=== PATIENT | male | born 1935 | race Caucasian/White ===

== ENCOUNTER → 2021-11-27 | Outpatient (CLI) | payer MEDICARE ==
--- NOTE | 2021-11-27 13:46 | US ---
EXAMINATION TYPE: US arterial LE single level DATE OF EXAM: 11/27/2021 9:28 AM CLINICAL HISTORY: I73.9 PERIPHERAL VASCULAR DISEASE. Patient states reason for exam in swelling and arthritis and he has drop foot. Doppler Waveforms: Right: Multiphasic Left: Multiphasic Pressure Gradients: No significant gradient Ankle-Brachial Indices: Right: 1.06 Left: 1.01 Toe Brachial Indices: Right: 0.56 Left: 0.66 IMPRESSION: Normal ankle-brachial indices
== END | disposition home or self-care (01) ==
LOC: RADUSWWP 08:50
PROVIDERS: ATTEND Podiatrist Foot & Ankle Surgery
DX: I73.9 Peripheral vascular disease, unspecified (principal)
CPT/HCPCS: 93922

== ENCOUNTER 2024-01-28 10:53 | Inpatient (IN) | payer MEDICARE ==
--- NOTE | 2024-01-28 11:32 | ED ---
General Adult HPI - General Chief complaint: Neuro Symptoms/Deficit Stated complaint: R arm/facial numbness,R eye issue Time Seen by Provider: 01/28/24 11:16 Source: patient, RN notes reviewed Mode of arrival: ambulatory Limitations: no limitations - History of Present Illness Initial comments: This is an 88-year-old male who presents to the emergency department for neurological symptoms. States that last night around 9 PM he was sitting down watching TV. He noticed his right arm become numb all of the way down to his fingertips. Shortly afterwards the right side of his face began to feel numb and he was unable to see out of his right eye. States that this lasted for about 2 hours, until around 11 PM, and then resolved on its own. He did not have any weakness with the numbness, states that he did have some pain. States that he currently feels fine and has no additional symptoms. Denies any history of CVA/TIA. Not taking any blood thinners. Denies any chest pain or shortness of breath. - Related Data Home Medications Medication Instructions Recorded Confirmed Atorvastatin [Lipitor] 10 mg PO DAILY 01/28/24 01/28/24 Glimepiride [Amaryl] 2 mg PO HS 01/28/24 01/28/24 Meclizine [Antivert] 25 mg PO TID PRN 01/28/24 01/28/24 Metoprolol Succinate (ER) [Toprol 50 mg PO DAILY 01/28/24 01/28/24 Xl] Valsartan 320 mg PO DAILY 01/28/24 01/28/24 sitaGLIPtin [Januvia] 100 mg PO DAILY 01/28/24 01/28/24 Allergies Allergy/AdvReac Type Severity Reaction Status Date / Time metformin Allergy Rash/Hives Verified 01/28/24 13:41 Penicillins Allergy Rash/Hives Verified 01/28/24 13:41 Review of Systems ROS Statement: Those systems with pertinent positive or pertinent negative responses have been documented in the HPI. ROS Other: All systems not noted in ROS Statement are negative. Past Medical History Past Medical History: Diabetes Mellitus, Hyperlipidemia, Hypertension History of Any Multi-Drug Resistant Organisms: None Reported Past Surgical History: No Surgical Hx Reported Past Psychological History: No Psychological Hx Reported Smoking Status: Never smoker Past Alcohol Use History: None Reported Past Drug Use History: None Reported General Exam Limitations: no limitations General appearance: alert, in no apparent distress Head exam: Present: atraumatic, normocephalic, normal inspection Eye exam: Present: normal appearance, PERRL, EOMI. Absent: scleral icterus, con junctival injection, periorbital swelling Respiratory exam: Present: normal lung sounds bilaterally. Absent: respiratory distress, wheezes, rales, rhonchi, stridor Cardiovascular Exam: Present: regular rate, normal rhythm, normal heart sounds. Absent: systolic murmur, diastolic murmur, rubs, gallop, clicks Neurological exam: Present: alert, oriented X3, CN II-XII intact Expanded Cerebellar function: Finger to Nose: Normal, Heel to Freed: Normal, Romberg: Normal Motor strength exam: RUE: 5, LUE: 5, RLE: 5, LLE: 5 Psychiatric exam: Present: normal affect, normal mood Skin exam: Present: warm, dry, intact, normal color. Absent: rash Course Vital Signs 01/28/24 01/28/24 01/28/24 11:01 13:00 13:07 Temperature 98.1 F Pulse Rate 63 55 L 56 L Respiratory 20 16 18 Rate Blood Pressure 150/90 144/94 132/86 O2 Sat by Pulse 99 95 94 L Oximetry 01/28/24 01/28/24 01/28/24 14:00 15:00 16:00 Temperature Pulse Rate 60 60 62 Respiratory 18 16 19 Rate Blood Pressure 132/86 151/96 O2 Sat by Pulse 95 95 95 Oximetry Medical Decision Making - Medical Decision Making This is an 88 year old male who presents to the emergency department for right sided paresthesias. Was pt. sent in by a medical professional or institution? @ -No Did you speak to anyone other than the patient for history? @ -No Did you review nursing and triage notes? @ -Yes, and I agree, it is accurate with regards to the patient's symptoms. Were old charts reviewed? @ -No Differential Diagnosis? @ -Differential CVA Ischemic stroke, hemorrhagic stroke, brain tumor, atypical migraine, Wernicke's encephalopathy, seizure, multiple sclerosis, meningitis, encephalitis, hypoglycemia, Guillain-Rodrigues, electrolytes disturbance, myasthenia gravis.... This is not meant to be an all-inclusive list EKG interpreted by me (3pts min.)? @ -EKG interpreted by me demonstrating the following: Sinus bradycardia. Ventricular rate 58 bpm, WV interval 238 ms, QRS duration 113 ms, QTc 425 ms. X-rays interpreted by me (1pt min.)? @ -Chest x-ray obtained, my interpretation identifies no localized consolidations or infiltrates. CT interpreted by me (1pt min.)? @ -CT scan of the brain obtained. My interpretation identifies no evidence of an acute intracranial hemorrhage. CTA of the head and neck obtained. My interpretation identifies no evidence of an aneurysm. U/S interpreted by me (1pt. min.)? @ -Not obtained What testing was considered but not performed? (CT, X-rays, U/S, labs)? Why? @ -None What meds were considered but not given? Why? @ -None Did you discuss the management of the patient with other professionals? @ -Yes, Dr. Wiseman, who accepts the patient for admission Did you reconcile home meds? @ -Yes Was smoking cessation discussed for >3mins.? @ -No Was critical care preformed (if so, how long)? @ -No Were there social determinants of health that impacted care today? How? (Ho melessness, low income, unemployed, alcoholism, drug addiction, transportation, low edu. Level, literacy, decrease access to med. care, long-term, rehab)? @ -No Was there de-escalation of care discussed even if they declined? (Discuss DNR or withdrawal of care, Hospice)? @ -No What co-morbidities impacted this encounter? (DM, HTN, Smoking, COPD, CAD, Cancer, CVA, Hep., AIDS, mental health diagnosis, sleep apnea, morbid obesity)? @ -DM, HLD, HTN Was patient admitted / discharged? @ -Admitted. Lab work demonstrates signs of dehydration and is otherwise unremarkable. Urinalysis has some elevated white blood cells but no bacteria. Urine sent for culture. Chest x-ray reveals no acute process. CT scan of the brain and CTA of the head and neck also revealed no acute intracranial process. NIH on arrival was 0. Patient likely experienced a TIA. Given his age and risk factors, patient will be admitted to medicine with neurology consult. Case discussed with ED attending Dr. Carpenter. Undiagnosed new problem with uncertain prognosis? @ -None Drug Therapy requiring intensive monitoring for toxicity (Heparin, Nitro, Insulin, Cardizem)? @ -None Were any procedures done? @ -None Diagnosis/symptom? @ -TIA Acute, or Chronic, or Acute on Chronic? @ -Acute Uncomplicated (without systemic symptoms) or Complicated (systemic symptoms)? @ -Uncomplicated Side effects of treatment? @ -None Exacerbation, Progression, or Severe Exacerbation] @ -Not applicable Poses a threat to life or bodily function? @ -Yes, can lead to CVA - Lab Data Result diagrams: 01/28/24 11:41 01/28/24 11:41 Lab Results 01/28/24 01/28/24 01/28/24 Range/Units 11:41 11:41 11:41 WBC 7.2 (3.8-10.6) k/uL RBC 4.55 (4.30-5.90) m/uL Hgb 14.0 (13.0-17.5) gm/dL Hct 42.6 (39.0-53.0) % MCV 93.5 (80.0-100.0) fL MCH 30.7 (25.0-35.0) pg MCHC 32.8 (31.0-37.0) g/dL RDW 14.5 (11.5-15.5) % Plt Count 206 (150-450) k/uL MPV 8.0 Neutrophils % 67 % Lymphocytes % 22 % Monocytes % 6 % Eosinophils % 4 % Basophils % 0 % Neutrophils # 4.8 (1.3-7.7) k/uL Lymphocytes # 1.6 (1.0-4.8) k/uL Monocytes # 0.4 (0-1.0) k/uL Eosinophils # 0.3 (0-0.7) k/uL Basophils # 0.0 (0-0.2) k/uL PT 10.4 (10.0-12.5) sec INR 0.9 (<1.2) APTT 23.1 (22.0-30.0) sec Sodium 137 (137-145) mmol/L Potassium 4.4 (3.5-5.1) mmol/L Chloride 106 (98-107) mmol/L Carbon Dioxide 25 (22-30) mmol/L Anion Gap 6 mmol/L BUN 23 H (9-20) mg/dL Creatinine 1.31 H (0.66-1.25) mg/dL Est GFR (CKD-EPI)AfAm 56 (>60 ml/min/1.73 sqM) Est GFR (CKD-EPI)NonAf 48 (>60 ml/min/1.73 sqM) Glucose 198 H (74-99) mg/dL Calcium 9.7 (8.4-10.2) mg/dL Magnesium 1.9 (1.6-2.3) mg/dL Total Bilirubin 0.5 (0.2-1.3) mg/dL AST 20 (17-59) U/L ALT 19 (4-49) U/L Alkaline Phosphatase 88 (38-126) U/L Troponin I (0.000-0.034) ng/mL Total Protein 7.0 (6.3-8.2) g/dL Albumin 4.0 (3.5-5.0) g/dL 01/28/24 Range/Units 11:41 WBC (3.8-10.6) k/uL RBC (4.30-5.90) m/uL Hgb (13.0-17.5) gm/dL Hct (39.0-53.0) % MCV (80.0-100.0) fL MCH (25.0-35.0) pg MCHC (31.0-37.0) g/dL RDW (11.5-15.5) % Plt Count (150-450) k/uL MPV Neutrophils % % Lymphocytes % % Monocytes % % Eosinophils % % Basophils % % Neutrophils # (1.3-7.7) k/uL Lymphocytes # (1.0-4.8) k/uL Monocytes # (0-1.0) k/uL Eosinophils # (0-0.7) k/uL Basophils # (0-0.2) k/uL PT (10.0-12.5) sec INR (<1.2) APTT (22.0-30.0) sec Sodium (137-145) mmol/L Potassium (3.5-5.1) mmol/L Chloride (98-107) mmol/L Carbon Dioxide (22-30) mmol/L Anion Gap mmol/L BUN (9-20) mg/dL Creatinine (0.66-1.25) mg/dL Est GFR (CKD-EPI)AfAm (>60 ml/min/1.73 sqM) Est GFR (CKD-EPI)NonAf (>60 ml/min/1.73 sqM) Glucose (74-99) mg/dL Calcium (8.4-10.2) mg/dL Magnesium (1.6-2.3) mg/dL Total Bilirubin (0.2-1.3) mg/dL AST (17-59) U/L ALT (4-49) U/L Alkaline Phosphatase (38-126) U/L Troponin I 0.018 (0.000-0.034) ng/mL Total Protein (6.3-8.2) g/dL Albumin (3.5-5.0) g/dL - Radiology Data Radiology results: report reviewed, image reviewed Disposition Clinical Impression: TIA (transient ischemic attack) Disposition: ADMITTED IP TO THIS HOSP
[2024-01-28 12:04] LABS: Basophils % (A) 0 %; Eosinophils # (A) 0.3 k/uL (0-0.7); Eosinophils % (A) 4 %; HCT 42.6 % (39.0-53.0); Lymphocytes # (A) 1.6 k/uL (1.0-4.8); Lymphocytes % (A) 22 %; MCH 30.7 pg (25.0-35.0); MCHC 32.8 g/dL (31.0-37.0); MCV 93.5 fL (80.0-100.0); Monocytes # (A) 0.4 k/uL (0-1.0); Monocytes % (A) 6 %; Neutrophils # (A) 4.8 k/uL (1.3-7.7); Neutrophils % (A) 67 %; Platelet Count 206 k/uL (150-450); RBC 4.55 m/uL (4.30-5.90); RDW 14.5 % (11.5-15.5); WBC 7.2 k/uL (3.8-10.6)
[2024-01-28 12:10] LABS: ALT 19 U/L (4-49); AST 20 U/L (17-59); African American GFR (CKD) 56 (>60 ml/min/1.73 sqM); Alkaline Phosphatase 88 U/L (38-126); Anion Gap 6 mmol/L; Blood Urea Nitrogen 23 mg/dL (9-20); Calcium 9.7 mg/dL (8.4-10.2); Carbon Dioxide 25 mmol/L (22-30); Chloride 106 mmol/L (98-107); Glucose 198 mg/dL (74-99); Magnesium 1.9 mg/dL (1.6-2.3); Non-African American GFR(CKD) 48 (>60 ml/min/1.73 sqM); Potassium 4.4 mmol/L (3.5-5.1); Sodium 137 mmol/L (137-145); Total Bilirubin 0.5 mg/dL (0.2-1.3)
[2024-01-28 12:21] LABS: INR 0.9 (<1.2); Partial Thromboplastin Time 23.1 sec (22.0-30.0); Prothrombin Time 10.4 sec (10.0-12.5)
--- NOTE | 2024-01-28 12:24 | XR ---
EXAMINATION TYPE: XR chest 2V DATE OF EXAM: 01/28/2024 12:19 PM COMPARISON: None TECHNIQUE: XR chest 2V Frontal and lateral views of the chest. CLINICAL INDICATION:Male, 88 years old with history of Weakness; FINDINGS: Lungs/Pleura: There is no evidence of pleural effusion, focal consolidation, or pneumothorax. Biapic al pleural thickening. Pulmonary vascularity: Unremarkable. Heart/mediastinum: Cardiomediastinal silhouette is enlarged. Atherosclerotic calcifications are seen in the aorta. Musculoskeletal: No acute osseous pathology. Bilateral AC joint arthropathy. IMPRESSION: No acute cardiopulmonary disease/process. [facility], , 01/28/2024 12:22 PM
--- NOTE | 2024-01-28 12:30 | CT ---
EXAMINATION TYPE: CT brain wo con CT DLP: 1746.2 mGycm, Automated exposure control for dose reduction was used. DATE OF EXAM: 01/28/2024 12:25 PM COMPARISON: None. CLINICAL INDICATION:Male, 88 years old with history of Right arm and facial numbness, Rt sided numbne ss TECHNIQUE: Brain: Multiple axial CT images of the brain were obtained without IV contrast. . Coronal and sagitta l reformats reviewed. FINDINGS: Brain: Extra-axial spaces: No abnormal extra-axial fluid collections. Ventricular system: Within normal limits Cerebral parenchyma: Diffuse cerebral atrophy. No acute intraparenchymal hemorrhage or mass effect. The vasquez-white junction is well differentiated. Scattered hypoattenuating areas are seen within the p eriventricular white matter. Cerebellum: Unremarkable. Mass effect: No evidence of midline shift. Intracranial vasculature: Atherosclerotic calcifications of the intracranial vessels. Soft tissues: Normal. Calvarium/osseous structures: No depressed skull fracture. Paranasal sinuses and mastoid air cells: Paranasal sinuses are clear. The left mastoid air cells are clear. Minimal opacification of the right mastoid air cells. Visualized orbits: Bilateral aphakia IMPRESSION: 1. No acute intracranial process. 2. Nonspecific white matter changes, likely secondary to chronic small vessel ischemic disease. [facility], , 01/28/2024 12:28 PM
--- NOTE | 2024-01-28 12:34 | CT ---
EXAMINATION TYPE: CT angio head neck CT DLP: 1746.2 mGycm, Automated exposure control for dose reduction was used. DATE OF EXAM: 01/28/2024 12:25 PM COMPARISON: CT brain the same date. CLINICAL INDICATION:Male, 88 years old with history of Right arm and facial numbness; PHH, Rt sided n umbness TECHNIQUE: Axially acquired helical CT angiogram of the head and neck was obtained with contrast util izing 75 cc of Isovue-370 administered intravenously. Axial images are supplemented with MIP reconstr uctions which were post-processed at an independent workstation. NASCET criteria used. FINDINGS: CTA HEAD: No evidence of acute intracranial hemorrhage, mass effect, or midline shift. The ventricles, sulci, a nd cisterns are unremarkable. The visualized portions of the internal carotid arteries, middle cerebral arteries, anterior cerebral arteries, and posterior cerebral arteries are patent. origin of the left [employer]. The basilar and vertebral arteries are patent. CTA NECK: Right Carotid System: The common carotid artery and external carotid artery are patent. The carotid bifurcation demonstrate s no evidence of hemodynamically significant stenosis. Minimal atherosclerotic calcification involvin g the proximal internal carotid artery. The remaining portions of the internal carotid artery demons trate normal size without significant narrowing. Left Carotid System: The common carotid artery and external carotid artery are patent. The carotid bifurcation demonstrate s no evidence of hemodynamically significant stenosis. The remaining portions of the internal carotid artery demonstrate normal size without significant narrowing. Vertebral arteries are patent without evidence hemodynamically significant stenosis. There is a three-vessel aortic arch. The origins of the great vessels are patent. No evidence of hemo dynamically significant stenosis. Mild amount of noncalcified plaque within the origin of the left diaz bclavian artery. Large right internal jugular vein. Biapical pleural-parenchymal scarring. Multilevel degenerative disc disease. IMPRESSION: 1. No evidence of dissection of the cervical internal carotid arteries or vertebral arteries or any e vidence of significant stenosis at the carotid bifurcations. 2. No evidence of high-grade stenosis or intracranial aneurysm. [facility], , 01/28/2024 12:32 PM
[2024-01-28] MEDS ORDERED: MORPHINE SULFATE 4 MG/ML SYRINGE IV PRN (12:43)
[2024-01-28] MEDS ORDERED: NALOXONE 0.4 MG/ML 1 ML VIAL IV PRN (12:43)
[2024-01-28] MEDS ORDERED: HYDROcodone/APAP 5-325MG 1 EACH TAB PO PRN (12:43)
[2024-01-28] MEDS ORDERED: ONDANSETRON 4 MG/2 ML VIAL IVP PRN (12:43)
[2024-01-28 12:54] LABS: Appearance,Urine Clear (Clear); Bilirubin,Urine Negative (Negative); Blood,Urine Trace (Negative); Color,Urine Colorless; Glucose,Urine (UA) Negative (Negative); Ketones,Urine Negative (Negative); Leukocyte Esterase,Urine Moderate (Negative); Mucus,Urine Rare /hpf; Nitrite,Urine Negative (Negative); PH, Urine 5.5 (5.0-8.0); Protein,Urine Negative (Negative); RBC,Urine 2 /hpf (0-5); Urobilinogen,Urine <2.0 mg/dL (<2.0); WBC,Urine 20 /hpf (0-5)
[2024-01-28] MEDS: SODIUM CHLORIDE 0.9% 500 ML 500 ML IV STA (12:54)
[2024-01-28] MEDS ORDERED: MECLIZINE 25 MG TAB PO PRN (17:12)
[2024-01-28] MEDS: GLIMEPIRIDE 2 MG TAB PO SCH (20:13)
[2024-01-29 07:52] LABS: Glucose,Whole Blood 126 mg/dL (70-110)
[2024-01-29] MEDS: METOPROLOL SUCCINATE (ER) 50 MG TAB.ER.24H PO SCH (08:40)
[2024-01-29] MEDS: VALSARTAN 160 MG TAB PO SCH (08:40)
[2024-01-29] MEDS: LINAGLIPTIN 5 MG TABLET PO SCH (08:40)
[2024-01-29] MEDS: ATORVASTATIN 10 MG TAB PO SCH (08:40)
[2024-01-29] MEDS: PANTOPRAZOLE 40 MG/10 ML VIAL IV SCH (08:40)
[2024-01-29 10:51] LABS: Basophils # (A) 0.05 X 10*3/uL (0.00-0.10); Basophils % (A) 0.6 %; Eosinophils # (A) 0.39 X 10*3/uL (0.04-0.35); Eosinophils % (A) 4.9 %; HCT 41.6 % (39.6-50.0); HGB 13.2 g/dL (13.0-17.0); Lymphocytes # (A) 2.01 X 10*3/uL (0.90-5.00); MCH 30.2 pg (27.0-32.0); MCHC 31.7 g/dL (32.0-37.0); MCV 95.2 FL (80.0-97.0); Mean Platelet Volume 10.5 FL (9.5-12.2); Monocytes # (A) 0.84 X 10*3/uL (0.20-1.00); Monocytes % (A) 10.5 %; NRBC Per 100 WBC 0 X 10*3/uL (0.00-0.01); Neutrophils # (A) 4.71 X 10*3/uL (1.80-7.70); Neutrophils % (A) 58.6 %; Platelet Count 183 X 10*3/uL (140-440); RBC 4.37 X 10*6/uL (4.40-5.60); RDW 14.6 % (11.5-14.5); WBC 8.03 X 10*3/uL (4.50-10.00)
[2024-01-29 10:52] LABS: BUN/Creat Ratio 15.85 Ratio (12.00-20.00); Blood Urea Nitrogen 20.6 mg/dL (9.0-27.0); Calcium 9.2 mg/dL (8.7-10.3); Carbon Dioxide 21.2 mmol/L (21.6-31.8); Chloride 107 mmol/L (96-109); Glucose 93 mg/dL (70-110); Potassium 4.2 mmol/L (3.5-5.5); Sodium 141 mmol/L (135-145)
[2024-01-29 12:13] LABS: Glucose,Whole Blood 180 mg/dL (70-110)
--- NOTE | 2024-01-29 15:00 | P.HPIM ---
History of Present Illness H&P Date: 01/28/24 Chief Complaint: R arm/facial numbness,R eye issue 88-year-old male who presents to the emergency department for neurological symptoms. States that last night around 9 PM he was sitting down watching TV. He noticed his right arm become numb all of the way down to his fingertips. Shortly afterwards the right side of his face began to feel numb and he was unable to see out of his right eye. States that this lasted for about 2 hours, until around 11 PM, and then resolved on its own. He did not have any weakness with the numbness, states that he did have some pain. States that he currently feels fine and has no additional symptoms. Denies any history of CVA/TIA. Not taking any blood thinners. Denies any chest pain or shortness of breath. Lab work completed in ED reveals a WBC of 7.2, hemoglobin of 14 and platelet count of 206, sodium 137, potassium 4.4, BUNs/creatinine of 23/1.3 and blood glucose of 198, troponin of 0.018. Urinalysis has some elevated white blood cells but no bacteria. Urine sent for culture. Chest x-ray reveals no acute process. CT scan of the brain and CTA of the head and neck also revealed no acute intracranial process. In the ED NIH on arrival was 0. Patient likely experienced a TIA. Given his age and risk factors, patient will be admitted to medicine with neurology consult. Review of Systems REVIEW OF SYSTEMS: CONSTITUTIONAL: No fever, no malaise, no fatigue. HEENT: No recent visual problems or hearing problems. Denied any sore throat. CARDIOVASCULAR: No chest pain, orthopnea, PND, no palpitations, no syncope. PULMONARY: No shortness of breath, no cough, no hemoptysis. GASTROINTESTINAL: No diarrhea, no nausea, no vomiting, no abdominal pain. NEUROLOGICAL: No headaches, no weakness, no numbness. HEMATOLOGICAL: Denies any bleeding or petechiae. GENITOURINARY: Denies any burning micturition, frequency, or urgency. MUSCULOSKELETAL/RHEUMATOLOGICAL: Denies any joint pain, swelling, or any muscle pain. ENDOCRINE: Denies any polyuria or polydipsia. The rest of the 14-point review of systems is negative. Past Medical History Past Medical History: Diabetes Mellitus, Hyperlipidemia, Hypertension History of Any Multi-Drug Resistant Organisms: None Reported Past Surgical History: No Surgical Hx Reported Past Psychological History: No Psychological Hx Reported Smoking Status: Never smoker Past Alcohol Use History: None Reported Past Drug Use History: None Reported Medications and Allergies Home Medications Medication Instructions Recorded Confirmed Type Atorvastatin [Lipitor] 10 mg PO DAILY 01/28/24 01/28/24 History Glimepiride [Amaryl] 2 mg PO HS 01/28/24 01/28/24 History Meclizine [Antivert] 25 mg PO TID PRN 01/28/24 01/28/24 History Metoprolol Succinate (ER) [Toprol 50 mg PO DAILY 01/28/24 01/28/24 History Xl] Valsartan 320 mg PO DAILY 01/28/24 01/28/24 History sitaGLIPtin [Januvia] 100 mg PO DAILY 01/28/24 01/28/24 History Allergies Allergy/AdvReac Type Severity Reaction Status Date / Time metformin Allergy Rash/Hives Verified 01/28/24 13:41 Penicillins Allergy Rash/Hives Verified 01/28/24 13:41 Physical Exam Vitals: Vital Signs Temp Pulse Resp BP Pulse Ox 01/28/24 13:07 56 L 18 132/86 94 L 01/28/24 11:01 98.1 F 63 20 150/90 99 Intake and Output 01/27/24 01/28/24 01/28/24 22:59 06:59 14:59 Other: Weight 102.058 kg General appearance: alert, in no apparent distress Head exam: Present: atraumatic, normocephalic, normal inspection Eye exam: Present: normal appearance, PERRL, EOMI. Absent: scleral icterus, conjunctival injection, periorbital swelling Respiratory exam: Present: normal lung sounds bilaterally. Absent: respiratory distress, wheezes, rales, rhonchi, stridor Cardiovascular Exam: Present: regular rate, normal rhythm, normal heart sounds. Absent: systolic murmur, diastolic murmur, rubs, gallop, clicks Neurological exam: Present: alert, oriented X3, CN II-XII intact Expanded Cerebellar function: Finger to Nose: Normal, Heel to Freed: Normal, Romberg: Normal Motor strength exam: RUE: 5, LUE: 5, RLE: 5, LLE: 5 Psychiatric exam: Present: normal affect, normal mood Skin exam: Present: warm, dry, intact, normal color. Absent: rash Results CBC & Chem 7: 01/29/24 04:58 01/29/24 04:58 Labs: Abnormal Lab Results - Last 24 Hours (Table) 01/28/24 01/28/24 Range/Units 11:41 12:42 BUN 23 H (9-20) mg/dL Creatinine 1.31 H (0.66-1.25) mg/dL Glucose 198 H (74-99) mg/dL Urine Blood Trace H (Negative) Ur Leukocyte Esterase Moderate H (Negative) Urine WBC 20 H (0-5) /hpf Urine Mucus Rare H (None) /hpf Assessment and Plan Assessment: 1. Right-sided numbness with vision changes/possible TIA -Resolved upon arrival to ED; NIH upon arrival for 0 -CT of the head and CT head and neck completed and is negative for any acute changes -Plan is to admit the patient for further neurology evaluation; neurology consult placed -Patient will be placed on telemetry; neurochecks per protocol -Permissive hypertension; monitor Accu-Cheks keeping blood glucose less than 180 -await further recommendations from neurology 2. Acute renal injury; patient has been placed on IV fluids in form of normal saline; will monitor strict BAR's, daily weights, renal function electrolytes; avoid nephrotoxins and hypotension 3. Abnormal UA; reveals moderate leukocyte esterase and WBCs; given normal white blood count and patient being asymptomatic, we will hold off on antibiotic therapy; urine culture has been sent 4. Hyperlipidemia; Lipitor 10 mg daily 5. Diabetes mellitus type 2; patient takes Amaryl 2 mg nightly along with Januvia 100 mg daily; monitor Accu-Cheks before every meal and at bedtime with insulin sliding scale 6. Hypertension; patient takes metoprolol 50 mg daily along with valsartan 320 mg daily DVT prophylaxis; SCDs only given possibility of acute CVA CODE STATUS; full code
--- NOTE | 2024-01-29 15:34 | P.CNNES ---
History of Present Illness Consult date: 01/29/24 Requesting physician: Erin Bocanegra Reason for Consult: tia History of Present Illness: This is an 88-year-old gentleman who present emergency department because of numbness and weakness involving the right side. Patient stated yesterday his symptoms began around 9 AM and he initially had numbness that involved right fingertips of the hand and that went up to the right shoulder then involve the right jaw. He also had weakness of the right upper extremity. Then he later he had right blurry vision. He stated that his symptoms were intermittent for the 2 hours yesterday. He denies any loss of consciousness, urinary or bowel incontinence. Denies any history of stroke or seizure in the past. He does have underlying history of skin cancer. Currently feels back to baseline. He has chronic kidney disease stage III and he is not on any aspirin and was told to avoid if possible unless is necessary because of his chronic kidney insufficiency. Some of the workup during this hospital visit consisted of: Reviewed the lab workup Urinalysis is leukocyte Estrace is moderate, urine white blood cells 20. CT head is reported as no acute intercranial process. I personally reviewed the CT and agree with the report. Possibly either patient had hygroma right frontal parietal more than the left versus atrophy. CTA head and neck: Reported as no evidence of dissection of cervical internal carotid artery or vertebral artery or any evidence of significant stenosis at the carotid bifurcation. No evidence of high-grade stenosis or intracranial aneurysm. Review of Systems As per HPI. Past Medical History Past Medical History: Diabetes Mellitus, Hyperlipidemia, Hypertension History of Any Multi-Drug Resistant Organisms: None Reported Past Surgical History: No Surgical Hx Reported Additional Past Surgical History / Comment(s): left knee 8 years ago. Past Psychological History: No Psychological Hx Reported Smoking Status: Never smoker Past Alcohol Use History: None Reported Past Drug Use History: None Reported Medications and Allergies Home Medications Medication Instructions Recorded Confirmed Type Atorvastatin [Lipitor] 10 mg PO DAILY 01/28/24 01/28/24 History Glimepiride [Amaryl] 2 mg PO HS 01/28/24 01/28/24 History Meclizine [Antivert] 25 mg PO TID PRN 01/28/24 01/28/24 History Metoprolol Succinate (ER) [Toprol 50 mg PO DAILY 01/28/24 01/28/24 History Xl] Valsartan 320 mg PO DAILY 01/28/24 01/28/24 History sitaGLIPtin [Januvia] 100 mg PO DAILY 01/28/24 01/28/24 History Allergies Allergy/AdvReac Type Severity Reaction Status Date / Time metformin Allergy Rash/Hives Verified 01/28/24 13:41 Penicillins Allergy Rash/Hives Verified 01/28/24 13:41 Physical Examination - Vital Signs Vital Signs: Vital Signs Temp Pulse Pulse Resp BP BP Pulse Ox 01/29/24 14:11 97.5 F L 63 18 179/84 97 01/29/24 07:03 98.4 F 67 18 177/77 96 01/29/24 02:00 97.9 F 72 17 150/84 96 01/28/24 22:50 97.7 F 80 17 159/83 98 01/28/24 22:25 16 01/28/24 21:14 89 18 169/103 96 01/28/24 20:14 65 16 173/97 95 01/28/24 16:00 62 19 151/96 95 Intake and Output 01/29/24 01/29/24 01/29/24 06:59 14:59 22:59 Intake Total 656 Output Total 700 800 Balance -700 -144 Intake: Oral 656 Output: Urine 700 800 Other: Voiding Method External Catheter External Catheter GENERAL: The patient is lying in bed and is not in acute distress. NEUROLOGICAL: Higher mental function: The patient is awake, alert, oriented to self, place and time. Patient is following commands. No aphasia and no neglect. Cranial nerves: The pupils are round, equal and reactive to light and accommodation. Visual espinoza are full to confrontation throughout. Extraocular movement is intact no nystagmus is noted. Facial sensation is normal to touch throughout. The facial strength is normal throughout. Hearing is moderate to severely decreased bilaterally to hand rub. Tongue is midline and moved [id number] without any difficulty. No dysarthria is noted. Shoulder shrug is normal bilaterally. Motor: The strength is 5 over 5 throughout. Normal tone and bulk. Cerebellum: Normal finger to nose bilaterally. Sensation: Sensation is normal to touch throughout. Reflexes (right/left): 2+ throughout. Plantars are mute bilaterally. Results - Laboratory Findings CBC and BMP: 01/29/24 04:58 11/23/24 04:58 Abnormal Lab Findings: Abnormal Labs 01/28/24 01/28/24 01/29/24 11:41 12:42 04:58 RBC 4.37 L MCHC 31.7 L RDW 14.6 H Eosinophils # 0.39 H Carbon Dioxide Anion Gap BUN 23 H Creatinine 1.31 H Est GFR (CKD-EPI) Glucose 198 H POC Glucose (mg/dL) Urine Blood Trace H Ur Leukocyte Esterase Moderate H Urine WBC 20 H Urine Mucus Rare H 01/29/24 01/29/24 01/29/24 04:58 07:50 12:12 RBC MCHC RDW Eosinophils # Carbon Dioxide 21.2 L Anion Gap 12.80 H BUN Creatinine Est GFR (CKD-EPI) 53 L Glucose POC Glucose (mg/dL) 126 H 180 H Urine Blood Ur Leukocyte Esterase Urine WBC Urine Mucus Assessment and Plan Assessment: This is an 88-year-old gentleman who present emergency department because of intermittent right upper extremity numbness weakness also involving the face with blurry vision over the right eye that happened on 01/28/2024 between 9 and 11 PM. Symptoms has resolved. Likely transient ischemic attack History of diabetes mellitus Hypertension Hypercholesteremia Chronic kidney insufficiency History of skin cancer Hard of hearing bilaterally Plan: I ordered MRI of the brain and cervical spine with and without Started patient on aspirin 81 mg daily and increase the Lipitor from 10 to 20 mg daily. Ordered a lipid panel, 2D echo TSH Continue neurochecks Cardiac monitoring Consulted PT and OT If MRI of the brain is negative and the patient continues to have symptoms then recommend a routine EEG. Will defer the rest of the medical management to primary and other specialist DVT prophylaxis I started the patient on subcu heparin The plan discussed with the patient. Thank you for the consultation. Dr. Hdz will resume neurology service on 01/31/2024. Time with Patient: Greater than 30
[2024-01-29 17:07] LABS: Glucose,Whole Blood 143 mg/dL (70-110)
[2024-01-29] MEDS: INSULIN ASPART (NovoLOG) 100 UNIT/ML VIAL SQ SCH (17:47)
[2024-01-29] MEDS: ASPIRIN 81 MG PO SCH (17:52)
[2024-01-29 19:46] LABS: Glucose,Whole Blood 200 mg/dL (70-110)
[2024-01-29] MEDS: HEPARIN SODIUM,PORCINE 5,000 UNIT/ML 1 ML VIAL SQ SCH (20:51)
[2024-01-30 05:53] LABS: Glucose,Whole Blood 104 mg/dL (70-110)
[2024-01-30] MEDS: PANTOPRAZOLE 40 MG TABLET PO SCH (06:04)
[2024-01-30 07:35] LABS: Basophils % (A) 0 %; Eosinophils # (A) 0.4 k/uL (0-0.7); Eosinophils % (A) 5 %; HCT 39.9 % (39.0-53.0); Lymphocytes % (A) 24 %; MCH 30.8 pg (25.0-35.0); MCHC 32.5 g/dL (31.0-37.0); MCV 94.6 fL (80.0-100.0); Monocytes # (A) 0.7 k/uL (0-1.0); Monocytes % (A) 8 %; Neutrophils % (A) 60 %; Platelet Count 164 k/uL (150-450); RBC 4.22 m/uL (4.30-5.90); RDW 14.6 % (11.5-15.5); WBC 8.2 k/uL (3.8-10.6)
[2024-01-30 08:02] LABS: African American GFR (CKD) 56 (>60 ml/min/1.73 sqM); Anion Gap 8 mmol/L; Blood Urea Nitrogen 23 mg/dL (9-20); Calcium 9.2 mg/dL (8.4-10.2); Carbon Dioxide 24 mmol/L (22-30); Chloride 107 mmol/L (98-107); Glucose 103 mg/dL (74-99); Non-African American GFR(CKD) 48 (>60 ml/min/1.73 sqM); Potassium 4.1 mmol/L (3.5-5.1); Sodium 139 mmol/L (137-145)
[2024-01-30] MEDS: ATORVASTATIN 20 MG TAB PO SCH (08:47)
[2024-01-30 12:18] LABS: Chol/HDL Ratio 3.66 Ratio; LDL Cholesterol,Calculated 53.8 mg/dL (0.0-131.0)
[2024-01-30 12:19] LABS: Glucose,Whole Blood 137 mg/dL (70-110)
[2024-01-30 17:21] LABS: Glucose,Whole Blood 111 mg/dL (70-110)
--- NOTE | 2024-01-30 17:36 | P.PN ---
Subjective Progress Note Date: 01/30/24 88-year-old male who presents to the emergency department for neurological symptoms. States that last night around 9 PM he was sitting down watching TV. He noticed his right arm become numb all of the way down to his fingertips. Shortly afterwards the right side of his face began to feel numb and he was unable to see out of his right eye. States that this lasted for about 2 hours, until around 11 PM, and then resolved on its own. He did not have any weakness with the numbness, states that he did have some pain. States that he currently feels fine and has no additional symptoms. Denies any history of CVA/TIA. Not taking any blood thinners. Denies any chest pain or shortness of breath. Lab work completed in ED reveals a WBC of 7.2, hemoglobin of 14 and platelet count of 206, sodium 137, potassium 4.4, BUNs/creatinine of 23/1.3 and blood glucose of 198, troponin of 0.018. Urinalysis has some elevated white blood cells but no bacteria. Urine sent for culture. Chest x-ray reveals no acute process. CT scan of the brain and CTA of the head and neck also revealed no acute intracranial process. In the ED NIH on arrival was 0. Patient likely experienced a TIA. Given his age and risk factors, patient will be admitted to medicine with neurology consult. 24-hour interval change 01/30/2024 Patient is seen and evaluated sitting up in bedside chair; no specific complaints reported Vital signs are reviewed and are stable Lab review shows WBC 8.2, hemoglobin of 13 and platelet count of 164, sodium 139, potassium 4.1, BUN/creatinine of 23/1.31 -Patient has been evaluated by neurology; MRI of the brain and cervical spine ordered and pending -Patient has been placed on aspirin; neurology recommending escalating statin therapy in form of Lipitor from 10 mg up to 20 mg daily -Echocardiogram is ordered and pending Objective - Vital Signs Vital signs: Vital Signs Temp 98 F 01/30/24 06:50 Pulse 66 01/30/24 06:50 Resp 18 01/30/24 06:50 BP 160/88 01/30/24 06:50 Pulse Ox 96 01/30/24 06:50 FiO2 Intake & Output 01/29/24 01/30/24 01/30/24 18:59 06:59 18:59 Intake Total 774 1040 180 Output Total 800 Balance -26 1040 180 Intake: Oral 774 1040 180 Output: Urine 800 Other: Voiding Method External Catheter Urinal Urinal # Voids 3 - Exam General appearance: alert, in no apparent distress Head exam: Present: atraumatic, normocephalic, normal inspection Eye exam: Present: normal appearance, PERRL, EOMI. Absent: scleral icterus, conjunctival injection, periorbital swelling Respiratory exam: Present: normal lung sounds bilaterally. Absent: respiratory distress, wheezes, rales, rhonchi, stridor Cardiovascular Exam: Present: regular rate, normal rhythm, normal heart sounds. Absent: systolic murmur, diastolic murmur, rubs, gallop, clicks Neurological exam: Present: alert, oriented X3, CN II-XII intact Expanded Cerebellar function: Finger to Nose: Normal, Heel to Freed: Normal, Romberg: Normal Motor strength exam: RUE: 5, LUE: 5, RLE: 5, LLE: 5 Psychiatric exam: Present: normal affect, normal mood Skin exam: Present: warm, dry, intact, normal color. Absent: rash - Labs CBC & Chem 7: 01/30/24 06:39 01/30/24 06:39 Labs: Abnormal Lab Results - Last 24 Hours (Table) 01/29/24 01/29/24 01/29/24 Range/Units 12:12 17:05 19:45 RBC (4.30-5.90) m/uL BUN (9-20) mg/dL Creatinine (0.66-1.25) mg/dL Glucose (74-99) mg/dL POC Glucose (mg/dL) 180 H 143 H 200 H (70-110) mg/dL 01/30/24 01/30/24 Range/Units 06:39 06:39 RBC 4.22 L (4.30-5.90) m/uL BUN 23 H (9-20) mg/dL Creatinine 1.31 H (0.66-1.25) mg/dL Glucose 103 H (74-99) mg/dL POC Glucose (mg/dL) (70-110) mg/dL Microbiology - Last 24 Hours (Table) 01/28/24 21:00 Urine Culture - Preliminary Urine,Clean Catch Assessment and Plan Assessment: 1. Right-sided numbness with vision changes/possible TIA -Resolved upon arrival to ED; NIH upon arrival for 0 -CT of the head and CT head and neck completed and is negative for any acute changes -Plan is to admit the patient for further neurology evaluation; neurology consult placed -Patient will be placed on telemetry; neurochecks per protocol -Permissive hypertension; monitor Accu-Cheks keeping blood glucose less than 180 -await further recommendations from neurology 2. Acute renal injury; patient has been placed on IV fluids in form of normal saline; will monitor strict BAR's, daily weights, renal function electrolytes; avoid nephrotoxins and hypotension 3. Abnormal UA; reveals moderate leukocyte esterase and WBCs; given normal white blood count and patient being asymptomatic, we will hold off on antibiotic therapy; urine culture has been sent 4. Hyperlipidemia; Lipitor 10 mg daily 5. Diabetes mellitus type 2; patient takes Amaryl 2 mg nightly along with Januvia 100 mg daily; monitor Accu-Cheks before every meal and at bedtime with insulin sliding scale 6. Hypertension; patient takes metoprolol 50 mg daily along with valsartan 320 mg daily DVT prophylaxis; SCDs only given possibility of acute CVA CODE STATUS; full code
[2024-01-30 19:51] LABS: Glucose,Whole Blood 150 mg/dL (70-110)
[2024-01-31 06:21] LABS: Glucose,Whole Blood 114 mg/dL (70-110)
[2024-01-31 07:30] LABS: Glucose,Whole Blood 115 mg/dL (70-110)
--- NOTE | 2024-01-31 08:11 | CT ---
EXAMINATION TYPE: CODE STROKE: CT brain wo contr DATE OF EXAM: 01/31/2024 8:00 AM COMPARISON: 01/28/2024 CLINICAL INDICATION: Male, 88 years old with history of right facial droop, , TECHNIQUE: Examination was done in axial plane without intravenous contrast. Coronal and sagittal r econstructions performed. CT DLP: 1193.2 mGycm, Automated exposure control for dose reduction was used. FINDINGS: Mild to moderate bilateral cerebral cortical volume loss. No extra-axial fluid collection is seen. Mi ld patchy white matter hypodensities in the supratentorial region. Punctate 3 mm hyperdensity left basal ganglia, axial image 29 and coronal image 31 not clearly seen p reviously. No other evidence for acute intracranial hemorrhage. No evidence for acute ischemic change, mass, mas s effect, or effacement of cerebral sulci or basal subarachnoid cisterns. No hydrocephalus. Slight rightward nasal septal deviation. Trace mucosal thickening ethmoid air cells. Orbits and globe s are intact. Mastoid air cells are well pneumatized. IMPRESSION: New punctate 3 mm hyperdensity left basal ganglia. Not seen previously. A small intraparenchymal blee d is not excluded. No mass effect or midline shift. Called to nurse Floridalma on [id number] at 8:07am. [facility], , 01/31/2024 8:08 AM
[2024-01-31] MEDS: CLOPIDOGREL 75 MG TAB PO SCH (08:16)
[2024-01-31 09:01] LABS: Basophils # (A) 0.04 X 10*3/uL (0.00-0.10); Basophils % (A) 0.4 %; Eosinophils # (A) 0.46 X 10*3/uL (0.04-0.35); Eosinophils % (A) 5.2 %; HCT 41.3 % (39.6-50.0); HGB 13.5 g/dL (13.0-17.0); Lymphocytes # (A) 1.78 X 10*3/uL (0.90-5.00); Lymphocytes % (A) 19.9 %; MCHC 32.7 g/dL (32.0-37.0); MCV 94.9 FL (80.0-97.0); Mean Platelet Volume 11.2 FL (9.5-12.2); Monocytes # (A) 0.99 X 10*3/uL (0.20-1.00); Monocytes % (A) 11.1 %; NRBC Per 100 WBC 0 X 10*3/uL (0.00-0.01); Neutrophils # (A) 5.63 X 10*3/uL (1.80-7.70); Neutrophils % (A) 63.1 %; Platelet Count 181 X 10*3/uL (140-440); RBC 4.35 X 10*6/uL (4.40-5.60); RDW 14.3 % (11.5-14.5); WBC 8.93 X 10*3/uL (4.50-10.00)
[2024-01-31 10:56] LABS: Blood Urea Nitrogen 26.1 mg/dL (9.0-27.0); Calcium 9.1 mg/dL (8.7-10.3); Carbon Dioxide 19.4 mmol/L (21.6-31.8); Chloride 106 mmol/L (96-109); Glucose 112 mg/dL (70-110); Sodium 140 mmol/L (135-145)
[2024-01-31 11:52] LABS: Glucose,Whole Blood 179 mg/dL (70-110)
--- NOTE | 2024-01-31 13:31 | CA ---
Transthoracic Echo Report Name: Travis Martell Age: 88 Gender: M : 1935 Exam Date: 01/31/2024 11:30 Exam Location: [place] [facility] Ht (in): 73 Wt (lb): 225 Ordering Physician: Lex Zeng MD Attending/Referring Phys: [employer] Radha Olmstead RDCS Procedure CPT: Indications: CVA Cardiac Hx: Technical Quality: Good Contrast 1: Total Dose (mL): Contrast 2: Total Dose (mL): MEASUREMENTS (Male / Female) Normal Values 2D ECHO LV Diastolic Diameter PLAX 4.4 cm 4.2 - 5.9 / 3.9 - 5.3 cm LV Systolic Diameter PLAX 2.9 cm IVS Diastolic Thickness 1.6 cm 0.6 - 1.0 / 0.6 - 0.9 cm LVPW Diastolic Thickness 1.4 cm 0.6 - 1.0 / 0.6 - 0.9 cm LV Relative Wall Thickness 0.7 RV Internal Dim ED PLAX 3.6 cm LVOT Diameter 2.5 cm LA Systolic Diameter LX 3.9 cm 3.0 - 4.0 / 2.7 - 3.8 cm LV Diastolic Volume MOD BP 91.8 cm??? 67 - 155 / 56 - 104 cm??? LV Systolic Volume MOD BP 33.7 cm??? - 58 / 19 - 49 cm??? LV Ejection Fraction MOD BP 63.3 % >= 55 % LV Cardiac Index MOD BP 1581.5 cm???/min???m??? LV Diastolic Volume MOD 4C 81.2 cm??? LV Systolic Volume MOD 4C 38.3 cm??? LV Ejection Fraction MOD 4C 52.8 % LV Cardiac Index MOD 4C 1167.1 cm???/min???m??? LV Diastolic Length 4C 8.3 cm LV Systolic Length 4C 6.3 cm LV Diastolic Volume MOD 2C 106.7 cm??? LV Systolic Volume MOD 2C 30.2 cm??? LV Ejection Fraction MOD 2C 71.7 % LV Cardiac Index MOD 2C 2084.2 cm???/min???m??? LV Diastolic Length 2C 8.5 cm LV Systolic Length 2C 6.4 cm LA Volume 61.6 cm??? 18 - 58 / 22 - 52 cm??? LA Volume Index 26.6 cm???/m??? 16 - 28 cm???/m??? DOPPLER AV Peak Velocity 168.9 cm/s AV Peak Gradient 11.4 mmHg AV Mean Velocity 107.6 cm/s AV Mean Gradient 5.4 mmHg AV Velocity Time Integral 32.3 cm LVOT Peak Velocity 96.6 cm/s LVOT Peak Gradient 3.7 mmHg LVOT Velocity Time Integral 20.0 cm LVOT Stroke Volume 96.0 cm??? LVOT Stroke Volume Index 42.4 ml/m??? LVOT Cardiac Index 2613.8 cm???/min???m??? AV Area Cont Eq vti 3.0 cm??? AV Area Cont Eq pk 2.8 cm??? MV Area PHT 2.5 cm??? Mitral E Point Velocity 59.1 cm/s Mitral A Point Velocity 104.8 cm/s Mitral E to A Ratio 0.6 MV Deceleration Time 297.8 ms TR Peak Velocity 255.2 cm/s TR Peak Gradient 26.1 mmHg Right Ventricular Systolic Press 30.9 mmHg FINDINGS Left Ventricle Left ventricular ejection fraction is estimated at 55-60 %. Moderate concentric left ventricular hypertrophy. No obvious regional wall motion abnormalities.left ventricular cavity size normal. Right Ventricle Mild right ventricular dilatation. Right ventricular systolic pressure within normal limits. Right Atrium Normal right atrial size. No right atrial thrombus or mass seen. Left Atrium Mildly increased left atrial volume. Mildly increased left atrial area. No left atrial thrombus or mass present. Mitral Valve Structurally normal mitral valve. No mitral stenosis, or prolapse.mild mitral regurgitation. Aortic Valve Trileaflet aortic valve. Thickened aortic valve without stenosis. No aortic regurgitation. Tricuspid Valve Structurally normal tricuspid valve. Mild tricuspid regurgitation. Pulmonic Valve Structurally normal pulmonic valve. No pulmonic regurgitation. Pericardium No pericardial or pleural effusion. Aorta Normal size aortic root and proximal ascending aorta. CONCLUSIONS 1. Normal left ventricular size and systolic function 2. Mild mitral and tricuspid regurgitation Previewed by: Dr. Wesley Phillips MD (Electronically Signed) Final Date: 31 January 2024 13:30
--- NOTE | 2024-01-31 13:40 | P.PN ---
Subjective Progress Note Date: 01/31/24 Principal diagnosis: Left Putaminal Intracerebral Hemorrhage Mr. Martell is an 88-year-old male with history of hypertension, diabetes, hyperlipidemia, chronic kidney disease stage III. He was admitted to [facility] on January 27 with complaints of right upper extremity numbness as well as weakness since January 26 at 9 PM. He also had some right sided vision loss for approximately 2 hours neurology evaluated him in the morning of January 28 and found him to be relatively nonfocal with exam. He has been order was ordered for an MRI of the brain as well as cervical spine and an echocardiogram. This morning, the patient suffered increased right sided weakness and a code stroke was called. I evaluated him at bedside and did of that he did appear to have some mild right hand weakness. I obtained a CT of the head noncontrast stat which was performed and revealed questionable hyperdensity concerning for blood in the right putamen. At this time he is he also had his MRI and this does show a small area of of hemorrhage in the right putamen. He has being transferred from observation to the medical bed. He was considered for aspirin as well as Plavix prior to this morning and has now been removed from that due to his intracerebral hemorrhage. He is still pending echocardiogram at this time. Exam. On exam this morning the patient had 4+ to 5 - are 5 - weakness in his right hand but other components of strength are within normal limits. This afternoon he appears to have 5/5 strength bilaterally. There is no cranial nerve deficit. Coordination and reflex examination are within normal limits. Studies: MRI of the brain (this is read prior to radiology) reveals a punctate 1 or 2 mm acute right putaminal hemorrhage. There is not appear to be any evidence of acute cerebral infarction. Assessment Mr. Martell is an 88-year-old male who suffered a left putaminal intracerebral hemorrhage. This is likely due to high blood pressure. He had some fluctuating events this morning possibly in the setting of low blood pressure disease given blood pressure medication was arisen from bed when symptoms started. Plan: 1. the patient will be discontinued from aspirin as well as Plavix at this time and is in the light of his intracerebral hemorrhage. 2. I will continue to follow-up on his echocardiogram. 3. He has physical therapy on board and they will evaluate him for possible rehabilitation placement. Number next I will continue to follow him in house on an intermittent basis. Objective - Vital Signs Vital signs: Vital Signs Temp 97.6 F 01/31/24 07:00 Pulse 74 01/31/24 07:00 Resp 16 01/31/24 07:00 BP 170/74 01/31/24 07:00 Pulse Ox 97 01/31/24 07:00 FiO2 Intake & Output 01/30/24 01/31/24 01/31/24 18:59 06:59 18:59 Intake Total 656 500 118 Balance 656 500 118 Intake: Oral 656 500 118 Other: Voiding Method Urinal # Voids 3 2 1 # Bowel Movements 1 1 - Labs CBC & Chem 7: 01/31/24 05:39 01/31/24 05:39 Labs: Abnormal Lab Results - Last 24 Hours (Table) 01/30/24 01/30/24 01/31/24 Range/Units 17:20 19:49 05:39 RBC 4.35 L (4.40-5.60) X 10*6/uL Eosinophils # 0.46 H (0.04-0.35) X 10*3/uL Carbon Dioxide (21.6-31.8) mmol/L Anion Gap (4.00-12.00) mmol/L Est GFR (CKD-EPI) (>=60) Glucose (70-110) mg/dL POC Glucose (mg/dL) 111 H 150 H (70-110) mg/dL 01/31/24 01/31/24 01/31/24 Range/Units 05:39 06:19 07:28 RBC (4.40-5.60) X 10*6/uL Eosinophils # (0.04-0.35) X 10*3/uL Carbon Dioxide 19.4 L (21.6-31.8) mmol/L Anion Gap 14.60 H (4.00-12.00) mmol/L Est GFR (CKD-EPI) 44 L (>=60) Glucose 112 H (70-110) mg/dL POC Glucose (mg/dL) 114 H 115 H (70-110) mg/dL 01/31/24 Range/Units 11:50 RBC (4.40-5.60) X 10*6/uL Eosinophils # (0.04-0.35) X 10*3/uL Carbon Dioxide (21.6-31.8) mmol/L Anion Gap (4.00-12.00) mmol/L Est GFR (CKD-EPI) (>=60) Glucose (70-110) mg/dL POC Glucose (mg/dL) 179 H (70-110) mg/dL Microbiology - Last 24 Hours (Table) 01/28/24 21:00 Urine Culture - Final Urine,Clean Catch Proteus mirabilis
--- NOTE | 2024-01-31 15:55 | P.PN ---
Subjective Progress Note Date: 01/31/24 88-year-old male who presents to the emergency department for neurological symptoms. States that last night around 9 PM he was sitting down watching TV. He noticed his right arm become numb all of the way down to his fingertips. Shortly afterwards the right side of his face began to feel numb and he was unable to see out of his right eye. States that this lasted for about 2 hours, until around 11 PM, and then resolved on its own. He did not have any weakness with the numbness, states that he did have some pain. States that he currently feels fine and has no additional symptoms. Denies any history of CVA/TIA. Not taking any blood thinners. Denies any chest pain or shortness of breath. Lab work completed in ED reveals a WBC of 7.2, hemoglobin of 14 and platelet count of 206, sodium 137, potassium 4.4, BUNs/creatinine of 23/1.3 and blood glucose of 198, troponin of 0.018. Urinalysis has some elevated white blood cells but no bacteria. Urine sent for culture. Chest x-ray reveals no acute process. CT scan of the brain and CTA of the head and neck also revealed no acute intracr anial process. In the ED NIH on arrival was 0. Patient likely experienced a TIA. Given his age and risk factors, patient will be admitted to medicine with neurology consult. 24-hour interval change 01/30/2024 Patient is seen and evaluated sitting up in bedside chair; no specific complaints reported Vital signs are reviewed and are stable Lab review shows WBC 8.2, hemoglobin of 13 and platelet count of 164, sodium 139, potassium 4.1, BUN/creatinine of 23/1.31 -Patient has been evaluated by neurology; MRI of the brain and cervical spine ordered and pending -Patient has been placed on aspirin; neurology recommending escalating statin therapy in form of Lipitor from 10 mg up to 20 mg daily -Echocardiogram is ordered and pending 01/31/2024 Patient is seen and evaluated in follow-up today currently scheduled to undergo MRI. Patient came in with some right arm weakness along with facial drooping with concerns of TIA versus CVA. Per nursing staff patient had repeat symptoms on the right side including increased right facial droop and bilateral upper extremity numbness and is scheduled to undergo MRI as well as cervical spine which is pending. 2D echo is ordered and will await official MRI report. Repeat CT this morning shows new punctate 3 mm hyperdensity in the left basal ganglia not seen previously with a small intraparenchymal bleed that is not excluded along with no mass effect or midline shift. Patient is afebrile with no reports of chest pain or shortness of breath. Patient reports he does have residual weakness and has been using a walker which she does not normally do. Will have PT/OT therapy evaluate as well Review of systems: Constitutional: No reports of fatigue, fever, or chills Cardiovascular: No reports of chest pain or palpitations Respiratory: No reports of shortness of breath or cough GI: No reports of nausea, vomiting, or diarrhea : No reports of dysuria or retention Neurovascular: reports of bilateral upper extremity weakness as well as right facial numbness that reoccurred this morning All medications have been reviewed Physical exam: Gen: This is a 88-year-old male who is awake, alert and oriented x 3, well- developed, elderly appearing HEENT: Head is atraumatic, normocephalic. Pupils equal, round. Sclerae is anicteric. NECK: Supple. No JVD. No lymphadenopathy. No thyromegaly. LUNGS: Diminished breath sounds bilaterally otherwise clear to auscultation. No wheezes or rhonchi. No intercostal retractions. HEART: S1, S2 are muffled ABDOMEN: Soft. Bowel sounds are present. No masses. No tenderness. EXTREMITIES: No pedal edema. No calf tenderness. NEUROLOGICAL: Patient is awake, alert and oriented x3. Cranial nerves 2 through 12 are grossly intact. Right facial drooping noted with no slurring of speech and strength bilaterally on left and right upper are 5/5 Assessment: 1. Right-sided numbness with vision changes/possible TIA versus CVA, undergoing further workup likely CVA and awaiting MRI. Patient experienced symptoms of bilateral upper extremity weakness and numbness along with right facial droop again today after 0800 01/31/2024 and code stroke was reinitiated and currently awaiting to undergo MRI. CT brain showing new punctate 3 mm hyperdensity in the left basal ganglia and difficult to exclude small intraparenchymal bleed. 2. Acute renal injury; patient has been placed on IV fluids in form of normal saline; will monitor strict BAR's, daily weights, renal function electrolytes; avoid nephrotoxins and hypotension 3. Abnormal UA; reveals moderate leukocyte esterase and WBCs; given normal white blood count and patient being asymptomatic, we will hold off on antibiotic therapy; urine culture has been sent, likely asymptomatic bacteriuria as patient is denying any pain, frequency, or burning with urination 4. Hyperlipidemia; continue Lipitor 10 mg daily 5. Diabetes mellitus type 2; patient takes Amaryl 2 mg nightly along with Januvia 100 mg daily; monitor Accu-Cheks before every meal and at bedtime with insulin sliding scale 6. Hypertension; patient takes metoprolol 50 mg daily along with valsartan 320 mg daily . GI prophylaxis DVT prophylaxis; SCDs only given possibility of acute CVA Full code Plan: Patient being followed by neurology awaiting to undergo MRI of the brain. Patient experienced previous symptoms of right facial drooping and also reported to nursing staff bilateral upper extremity weakness and heaviness and code stroke was reactivated. Patient did undergo repeat CT revealing a hyperdensity in the left basal ganglia consistent with CVA and awaiting MRI of the brain. Patient will transfer to [facility]. per protocol recommend PT/OT therapy evaluation Aspirin and Plavix being held per neurology and lieu of difficulty exclude poss ible hemorrhage Will follow-up with neurology as well as patient in the a.m. Possible discharge planning in the next 24 to 48 hours The impression and plan of care has been dictated by Pamela Mitchell, Nurse Practitioner as directed. Dr. Dasha MD I have performed a history and examination and MDM of this patient, discussed the same with the dictator, and agree with the dictator's assessment and plan as written ,documented as a scribe. Based on total visit time, I have performed more than 50% of the visit. Objective - Vital Signs Vital signs: Vital Signs Temp 97.6 F 01/31/24 07:00 Pulse 74 01/31/24 07:00 Resp 16 01/31/24 07:00 BP 170/74 01/31/24 07:00 Pulse Ox 97 01/31/24 07:00 FiO2 Intake & Output 01/30/24 01/31/24 01/31/24 18:59 06:59 18:59 Intake Total 656 500 118 Balance 656 500 118 Intake: Oral 656 500 118 Other: Voiding Method Urinal # Voids 3 2 # Bowel Movements 1 - Labs CBC & Chem 7: 01/31/24 05:39 01/31/24 05:39 Labs: Abnormal Lab Results - Last 24 Hours (Table) 01/29/24 01/30/24 01/30/24 Range/Units 04:58 12:17 17:20 RBC (4.40-5.60) X 10*6/uL Eosinophils # (0.04-0.35) X 10*3/uL POC Glucose (mg/dL) 137 H 111 H (70-110) mg/dL Triglycerides 178.00 H (0.00-149.00) mg/dL HDL Cholesterol 33.60 L (40.00-60.00) mg/dL 01/30/24 01/31/24 01/31/24 Range/Units 19:49 05:39 06:19 RBC 4.35 L (4.40-5.60) X 10*6/uL Eosinophils # 0.46 H (0.04-0.35) X 10*3/uL POC Glucose (mg/dL) 150 H 114 H (70-110) mg/dL Triglycerides (0.00-149.00) mg/dL HDL Cholesterol (40.00-60.00) mg/dL 01/31/24 Range/Units 07:28 RBC (4.40-5.60) X 10*6/uL Eosinophils # (0.04-0.35) X 10*3/uL POC Glucose (mg/dL) 115 H (70-110) mg/dL Triglycerides (0.00-149.00) mg/dL HDL Cholesterol (40.00-60.00) mg/dL Microbiology - Last 24 Hours (Table) 01/28/24 21:00 Urine Culture - Final Urine,Clean Catch Proteus mirabilis
--- NOTE | 2024-01-31 16:00 | MR ---
EXAMINATION TYPE: MR brain/cspine wo/w DATE OF EXAM: 01/31/2024 1:22 PM COMPARISON: CT 01/28/2024. CLINICAL INDICATION: Male, 88 years old with history of numbness and visual disturbance; PHH, Numbnes s and visual disturbance. TECHNIQUE: Multi planar, multi sequence imaging was performed through the brain including: T1, T2, Inversion rec overy, Diffusion weighted imaging, and gradient echo imaging. No gadolinium was given. Multi planar, multi sequence imaging was performed utilizing: T1-weighted, T2-weighted, and turbo inv ersion recovery imaging of the cervical spine. IV Contrast: 10 mL Gadobutrol FINDINGS: Mild cerebral atrophy with proportional dilation of ventricular system. Patchy areas of high T2 sig nal intensity are seen within the periventricular white matter. Midline structures show no abnormalit y. Diffusion-weighted imaging shows no evidence of restricted diffusion. The susceptibility weighted images do not reveal any evidence for micro-hemorrhage. Masslike area seen on T2-weighted imaging of the right parotid gland deep portion also identified on FLAIR measuring 10 x 12 mm. This is situated behind the mandible. Poorly visualized on other sequences. The bone marrow signal is within normal limits. Paranasal sinuses and mastoid air cells: No significant paranasal sinus disease. Trace right mastoid air cell effusion. Visualized orbits: Bilateral aphakia Alignment: The cervical vertebral bodies have preserved heights. Alignment is within normal limits gi mark patient positioning. Bones: Bone signal is within normal limits. No abnormal bone marrow edema on inversion recovery seque nces. No abnormal postcontrast enhancement Cord: The spinal cord is unremarkable with regards to their signal intensity and morphology. No abnor mal postcontrast enhancement Discs: Multilevel disc desiccation is present. C2-C3: No significant disc pathology. The spinal canal is patent. No neural foraminal stenosis. C3-C4: No significant disc pathology. The spinal canal is patent. Bilateral facet and uncovertebral joint arthropathy are present with mild bilateral neural foraminal stenosis. C4-C5: No significant disc pathology. The spinal canal is patent. No neural foraminal stenosis. C5-C6: A disc osteophyte complex is present which minimally narrows the ventral subarachnoid space. No neural foraminal stenosis. C6-C7: A disc osteophyte complex is present which minimally narrows the ventral subarachnoid space. No neural foraminal stenosis. C7-T1: No significant disc pathology. The spinal canal is patent. No neural foraminal stenosis. Other: No lymphadenopathy visualized. IMPRESSION: 1. No evidence for disc herniation or significant spinal canal stenosis. 2. 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 3. No evidence of intra-axial mass or acute/subacute infarct. 4. Nonspecific white matter changes, likely secondary to small vessel ischemic disease. 5. Abnormal signal within the deep portion of the right parotid gland seen and T2-weighted sequences . This conspicuous on T1-weighted imaging and postcontrast imaging findings could represent artifact. Consider short-term follow-up MRI with IV contrast for stability in 3 months. Alternatively, finding s could represent primary parotid lesion versus other etiologies no lymphadenopathy visualized in the neck on cervical spine imaging. [facility], , 01/31/2024 3:58 PM
[2024-01-31 16:24] LABS: Glucose,Whole Blood 138 mg/dL (70-110)
[2024-01-31 20:17] LABS: Glucose,Whole Blood 159 mg/dL (70-110)
[2024-02-01 06:08] LABS: Glucose,Whole Blood 118 mg/dL (70-110)
[2024-02-01 07:15] LABS: African American GFR (CKD) 49 (>60 ml/min/1.73 sqM); Anion Gap 6 mmol/L; Blood Urea Nitrogen 29 mg/dL (9-20); Carbon Dioxide 24 mmol/L (22-30); Chloride 106 mmol/L (98-107); Glucose 109 mg/dL (74-99); Non-African American GFR(CKD) 43 (>60 ml/min/1.73 sqM); Potassium 4.2 mmol/L (3.5-5.1); Sodium 136 mmol/L (137-145)
--- NOTE | 2024-02-01 11:09 | P.PN ---
Subjective Progress Note Date: 02/01/24 Principal diagnosis: Right sided Weakness/Numbness-- Possible Left Putaminal Hemorrhage Mr. Martell is an 88-year-old male with history of hypertension, diabetes, hyperlipidemia, chronic kidney disease stage III. He was admitted to [facility] on January 27 with complaints of right upper extremity numbness as well as weakness since January 26 at 9 PM. He also had some right sided vision loss for approximately 2 hours neurology evaluated him in the morning of January 28 and found him to be relatively nonfocal with exam. He has been order was ordered for an MRI of the brain as well as cervical spine and an echocardiogram. 01/31/24 AM, the patient suffered increased right sided weakness and a code stroke was called. I evaluated him at bedside and did of that he did appear to have some mild right hand weakness. I obtained a CT of the head noncontrast stat which was performed and revealed questionable hyperdensity concerning for blood in the right putamen. At this time he is he also had his MRI and this does show a small area of of hemorrhage in the right putamen. However, the study was read by myself prior to radiology dictation and radiology dictates that there is no evidence of cerebral infarction or hemorrhage. I have asked that they review the particular area in the left putamen to which is concerning to my eyes for hemorrhage. He has being transferred from observation to the medical bed. He was considered for aspirin as well as Plavix prior to this morning and has now been removed from that due to possible intracerebral hemor rhage. His echocardiogram from January 30 revealed ejection fraction of 71.7% with mild mitral as well as tricuspid regurgitation. This morning January 31 the patient reports doing fairly well. He complains of some blurry vision from both eyes which he says is new since his stroke. However on exam he has no distinct visual deficit cranial nerves II through XII appear intact confrontation bilaterally. Motor examination reveals 5- out of 5 strength with right upper extremity and both lower extremities have strength of 4+ to 5 - in the hips. Sensory examinations intact to light touch. He exhibits no coordination deficit or reflex abnormality. Conclusion: Mr. Martell is an 88-year-old male with symptoms of right upper extremity numbness and weakness suffered on January 26. He had an MRI done yesterday showing possible evidence of a left putaminal's intracerebral hemorrhage approxi mate 1 to 2 mm, however, radiology did not dictate their note with attention to this area. Plan: 1 I have asked the hospitalist team to contact the radiologist about reviewing the MRI a second time and possibly dictating an addendum to comment on the area in the left putamen which may be concerning for small intracerebral hemorrhage versus dilated intravascular space. 2. Neurology will continue to follow the patient in house. He is pending rehab evaluation and possible discharge inpatient rehabilitation as deemed necessary. Objective - Vital Signs Vital signs: Vital Signs Temp 97.6 F 02/01/24 09:44 Pulse 74 02/01/24 09:44 Resp 18 02/01/24 09:44 BP 150/72 02/01/24 09:44 Pulse Ox 95 02/01/24 09:44 FiO2 Intake & Output 01/31/24 02/01/24 02/01/24 18:59 06:59 18:59 Intake Total 236 250 Balance 236 250 Weight 102.5 kg Intake: IV 10 Invasive Line 1 10 Oral 236 240 Other: Voiding Method Toilet Toilet Toilet Urinal Urinal Urinal # Voids 2 1 1 # Bowel Movements 1 1 1 - Labs CBC & Chem 7: 01/31/24 05:39 02/01/24 05:21 Labs: Abnormal Lab Results - Last 24 Hours (Table) 01/31/24 01/31/24 01/31/24 Range/Units 11:50 16:21 20:15 Sodium (137-145) mmol/L BUN (9-20) mg/dL Creatinine (0.66-1.25) mg/dL Glucose (74-99) mg/dL POC Glucose (mg/dL) 179 H 138 H 159 H (70-110) mg/dL 02/01/24 02/01/24 Range/Units 05:21 06:07 Sodium 136 L (137-145) mmol/L BUN 29 H (9-20) mg/dL Creatinine 1.45 H (0.66-1.25) mg/dL Glucose 109 H (74-99) mg/dL POC Glucose (mg/dL) 118 H (70-110) mg/dL
[2024-02-01 11:31] LABS: Glucose,Whole Blood 132 mg/dL (70-110)
[2024-02-01] MEDS: ACETAMINOPHEN TAB 325 MG TAB PO PRN (12:49)
[2024-02-01 16:40] LABS: Glucose,Whole Blood 198 mg/dL (70-110)
[2024-02-01 20:03] LABS: Glucose,Whole Blood 122 mg/dL (70-110)
[2024-02-02 00:08] VITALS: RESP 18
[2024-02-02 03:37] VITALS: TEMP 97.9
--- NOTE | 2024-02-02 06:13 | P.PN ---
Subjective Progress Note Date: 02/01/24 88-year-old male who presents to the emergency department for neurological symptoms. States that last night around 9 PM he was sitting down watching TV. He noticed his right arm become numb all of the way down to his fingertips. Shortly afterwards the right side of his face began to feel numb and he was unable to see out of his right eye. States that this lasted for about 2 hours, until around 11 PM, and then resolved on its own. He did not have any weakness with the numbness, states that he did have some pain. States that he currently feels fine and has no additional symptoms. Denies any history of CVA/TIA. Not taking any blood thinners. Denies any chest pain or shortness of breath. Lab work completed in ED reveals a WBC of 7.2, hemoglobin of 14 and platelet count of 206, sodium 137, potassium 4.4, BUNs/creatinine of 23/1.3 and blood glucose of 198, troponin of 0.018. Urinalysis has some elevated white blood cells but no bacteria. Urine sent for culture. Chest x-ray reveals no acute process. CT scan of the brain and CTA of the head and neck also revealed no acute intracr anial process. In the ED NIH on arrival was 0. Patient likely experienced a TIA. Given his age and risk factors, patient will be admitted to medicine with neurology consult. 24-hour interval change 01/30/2024 Patient is seen and evaluated sitting up in bedside chair; no specific complaints reported Vital signs are reviewed and are stable Lab review shows WBC 8.2, hemoglobin of 13 and platelet count of 164, sodium 139, potassium 4.1, BUN/creatinine of 23/1.31 -Patient has been evaluated by neurology; MRI of the brain and cervical spine ordered and pending -Patient has been placed on aspirin; neurology recommending escalating statin therapy in form of Lipitor from 10 mg up to 20 mg daily -Echocardiogram is ordered and pending 01/31/2024 Patient is seen and evaluated in follow-up today currently scheduled to undergo MRI. Patient came in with some right arm weakness along with facial drooping with concerns of TIA versus CVA. Per nursing staff patient had repeat symptoms on the right side including increased right facial droop and bilateral upper extremity numbness and is scheduled to undergo MRI as well as cervical spine which is pending. 2D echo is ordered and will await official MRI report. Repeat CT this morning shows new punctate 3 mm hyperdensity in the left basal ganglia not seen previously with a small intraparenchymal bleed that is not excluded along with no mass effect or midline shift. Patient is afebrile with no reports of chest pain or shortness of breath. Patient reports he does have residual weakness and has been using a walker which she does not normally do. Will have PT/OT therapy evaluate as well 02/01/2024 Patient is seen and evaluated in follow-up with no acute overnight issues noted. Neurology following patient underwent MRI and there was concern of possible hemorrhage or increased vascular area within the basal ganglia and awaiting to speak further with radiologist. Patient denies any worsening symptoms continues with generalized weakness although was able to work with physical therapy and did well. Patient will likely benefit from home with home care. Will await to speak with neurologist regarding discharge planning. Review of systems: Constitutional: No reports of fatigue, fever, or chills Cardiovascular: No reports of chest pain or palpitations Respiratory: No reports of shortness of breath or cough GI: No reports of nausea, vomiting, or diarrhea : No reports of dysuria or retention Neurovascular: reports of generalized weakness All medications have been reviewed Physical exam: Gen: This is a 88-year-old male who is awake, alert and oriented x 3, well- developed, elderly appearing HEENT: Head is atraumatic, normocephalic. Pupils equal, round. Sclerae is anicteric. NECK: Supple. No JVD. No lymphadenopathy. No thyromegaly. LUNGS: Diminished breath sounds bilaterally otherwise clear to auscultation. No wheezes or rhonchi. No intercostal retractions. HEART: S1, S2 are muffled ABDOMEN: Soft. Bowel sounds are present. No masses. No tenderness. EXTREMITIES: No pedal edema. No calf tenderness. NEUROLOGICAL: Patient is awake, alert and oriented x3. Cranial nerves 2 through 12 are grossly intact. Right facial drooping noted with no slurring of speech and strength bilaterally on left and right upper are 5/5 Assessment: 1. Right-sided numbness with vision changes/possible TIA versus CVA, undergoing further workup likely CVA and awaiting MRI. Patient experienced symptoms of bilateral upper extremity weakness and numbness along with right facial droop again today after 0800 01/31/2024 and code stroke was reinitiated and currently awaiting to undergo MRI. CT brain showing new punctate 3 mm hyperdensity in the left basal ganglia and difficult to exclude small intraparenchymal bleed. 2. Acute renal injury; patient has been placed on IV fluids in form of normal s andi; will monitor strict BAR's, daily weights, renal function electrolytes; avoid nephrotoxins and hypotension 3. Abnormal UA; reveals moderate leukocyte esterase and WBCs; given normal white blood count and patient being asymptomatic, we will hold off on antibiotic therapy; urine culture has been sent, likely asymptomatic bacteriuria as patient is denying any pain, frequency, or burning with urination 4. Hyperlipidemia; continue Lipitor 10 mg daily 5. Diabetes mellitus type 2; patient takes Amaryl 2 mg nightly along with Januvia 100 mg daily; monitor Accu-Cheks before every meal and at bedtime with insulin sliding scale 6. Hypertension; patient takes metoprolol 50 mg daily along with valsartan 320 mg daily . GI prophylaxis DVT prophylaxis; SCDs only given possibility of acute CVA Full code Plan: Patient being followed by neurology underwent MRI of the brain and per neurology there was a concern of possible hemorrhage versus increased vasculature in the basal ganglia and awaiting to speak further with radiologist. Patient experienced previous symptoms of right facial drooping and also reported to nursing staff bilateral upper extremity weakness and heaviness and code stroke was reactivated. Patient did undergo repeat CT revealing a hyperdensity in the left basal ganglia consistent with CVA and awaiting addended report MRI of the brain. Patient will be started on aspirin and avoiding Plavix at this time per neurology, continue statin therapy Will follow-up with neurology as well as patient in the a.m. Possible discharge planning in the next 24 hours. Patient awaiting PT/OT therapy consultation. The impression and plan of care has been dictated by Pamela Mitchell, Nurse Practitioner as directed. Dr. Dasha MD I have performed a history and examination and MDM of this patient, discussed the same with the dictator, and agree with the dictator's assessment and plan as written ,documented as a scribe. Based on total visit time, I have performed more than 50% of the visit. Objective - Vital Signs Vital signs: Vital Signs Temp 97.6 F 02/01/24 09:44 Pulse 67 02/01/24 12:41 Resp 16 02/01/24 12:41 BP 165/91 02/01/24 12:41 Pulse Ox 95 02/01/24 12:41 FiO2 Intake & Output 01/31/24 02/01/24 02/01/24 18:59 06:59 18:59 Intake Total 236 368 Balance 236 368 Weight 102.5 kg Intake: IV 10 Invasive Line 1 10 Oral 236 358 Other: Voiding Method Toilet Toilet Toilet Urinal Urinal Urinal # Voids 2 1 1 # Bowel Movements 1 1 1 - Labs CBC & Chem 7: 01/31/24 05:39 02/01/24 05:21 Labs: Abnormal Lab Results - Last 24 Hours (Table) 01/31/24 01/31/24 02/01/24 Range/Units 16:21 20:15 05:21 Sodium 136 L (137-145) mmol/L BUN 29 H (9-20) mg/dL Creatinine 1.45 H (0.66-1.25) mg/dL Glucose 109 H (74-99) mg/dL POC Glucose (mg/dL) 138 H 159 H (70-110) mg/dL 02/01/24 02/01/24 Range/Units 06:07 11:30 Sodium (137-145) mmol/L BUN (9-20) mg/dL Creatinine (0.66-1.25) mg/dL Glucose (74-99) mg/dL POC Glucose (mg/dL) 118 H 132 H (70-110) mg/dL
[2024-02-02 06:18] LABS: Glucose,Whole Blood 122 mg/dL (70-110)
[2024-02-02 07:35] LABS: African American GFR (CKD) 47 (>60 ml/min/1.73 sqM); Anion Gap 4 mmol/L; Blood Urea Nitrogen 28 mg/dL (9-20); Calcium 9.4 mg/dL (8.4-10.2); Carbon Dioxide 25 mmol/L (22-30); Chloride 107 mmol/L (98-107); Glucose 123 mg/dL (74-99); Non-African American GFR(CKD) 41 (>60 ml/min/1.73 sqM); Potassium 4.3 mmol/L (3.5-5.1); Sodium 136 mmol/L (137-145)
[2024-02-02 08:01] VITALS: BP 150/72; PULSE 76
--- NOTE | 2024-02-02 11:26 | P.PN ---
Subjective Progress Note Date: 02/02/24 Principal diagnosis: Left putaminal hemorrhage, onset unknown. Mr. Martell is an 88-year-old male with history of hypertension, diabetes, hyperlipidemia, chronic kidney disease stage III. He was admitted to [facility] on January 27 with complaints of right upper extremity numbness as well as weakness since January 26 at 9 PM. He also had some right sided vision loss for approximately 2 hours neurology evaluated him in the morning of January 28 and found him to be relatively nonfocal with exam. He has been order was ordered for an MRI of the brain as well as cervical spine and an echocardiogram. 01/31/24 AM, the patient suffered increased right sided weakness and a code stroke was called. I evaluated him at bedside and did of that he did appear to have some mild right hand weakness. I obtained a CT of the head noncontrast stat which was performed and revealed questionable hyperdensity concerning for blood in the right putamen. At this time he is he also had his MRI and this does show a small area of of hemorrhage in the right putamen. However, the study was read by myself prior to radiology dictation and radiology dictates that there is no evidence of cerebral infarction or hemorrhage. I have asked that they review the particular area in the left putamen to which is concerning to my eyes for hemorrhage. He has being transferred from observation to the medical bed. He was considered for aspirin as well as Plavix prior to this mo rning and has now been removed from that due to possible intracerebral hemorrhage. His echocardiogram from January 30 revealed ejection fraction of 71.7% with mild mitral as well as tricuspid regurgitation. January 31 the patient reports doing fairly well. He complains of some blurry vision from both eyes which he says is new since his stroke. However on exam he has no distinct visual deficit cranial nerves II through XII appear intact confrontation bilaterally. Motor examination reveals 5- out of 5 strength with right upper extremity and both lower extremities have strength of 4+ to 5 - in the hips. Sensory examinations intact to light touch. He exhibits no coordination deficit or reflex abnormality. On February 02, 2024, the patient is sitting in his chair resting comfortably. He denies physical deficits at this time. He is a potentially scheduled to go to rehabilitation versus home with home health as per rehabilitation recommendations. His exam does not reflect any neurologic abnormality at this time. He does appear to be ambulatory ambulating well as well as urinating and defecating well and swallowing without difficulty. At this time he is cleared for transfer to rehab pending rehab recommendations and transfer orders. Conclusion: Mr. Martell is an 88-year-old male with symptoms of right upper extremity numbness and weakness suffered on January 26. He had an MRI done yesterday showing possible evidence of a left putaminal's intracerebral hemorrhage hailey roximate 1 to 2 mm. Radiology did review this area and considered to be likely mineralization versus hemosiderin deposition. The age of this lesion appears chronic, and however, as it does appear to explain his deficits this is somewhat unusual. 1. He is cleared by neurology standpoint for discharge to rehabilitation versus home with home health. 2. He will need neurology follow-up upon discharge with local neurology. 3. Neurology will continue to follow him in house, however this may be on intermittent basis from now on. Objective - Vital Signs Vital signs: Vital Signs Temp 97.9 F 02/02/24 08:00 Pulse 76 02/02/24 08:00 Resp 18 02/02/24 08:00 BP 150/72 02/02/24 08:00 Pulse Ox 96 02/02/24 08:00 FiO2 Intake & Output 02/01/24 02/02/24 02/02/24 18:59 06:59 18:59 Intake Total 496 Balance 496 Weight 102.3 kg Intake: IV 20 Invasive Line 1 10 Invasive Line 2 10 Oral 476 Other: Voiding Method Toilet Toilet Urinal Urinal # Voids 1 1 # Bowel Movements 1 - Labs CBC & Chem 7: 01/31/24 05:39 02/02/24 06:27 Labs: Abnormal Lab Results - Last 24 Hours (Table) 02/01/24 02/01/24 02/01/24 Range/Units 11:30 16:36 20:02 Sodium (137-145) mmol/L BUN (9-20) mg/dL Creatinine (0.66-1.25) mg/dL Glucose (74-99) mg/dL POC Glucose (mg/dL) 132 H 198 H 122 H (70-110) mg/dL 02/02/24 02/02/24 Range/Units 06:16 06:27 Sodium 136 L (137-145) mmol/L BUN 28 H (9-20) mg/dL Creatinine 1.52 H (0.66-1.25) mg/dL Glucose 123 H (74-99) mg/dL POC Glucose (mg/dL) 122 H (70-110) mg/dL
[2024-02-02 11:39] LABS: Glucose,Whole Blood 175 mg/dL (70-110)
--- NOTE | 2024-02-06 11:42 | P.DS ---
Providers Date of admission: 02/01/24 10:19 Expected date of discharge: 02/02/24 Attending physician: Lalit Lawson Consults: 01/28/24 12:43 Consult Physician Urgent Consulting Provider: Lex Zeng Consult Reason/Comments: TIA Do you want consulting provider notified?: Yes Primary care physician: Gisella Esteban Hospital Course: Final diagnosis 1. Right-sided numbness with vision changes/secondary to CVA, CT brain showing new punctate 3 mm hyperdensity in the left basal ganglia, bleed ruled out 2. Acute renal injury; improving 3. Abnormal UA; reveals moderate leukocyte esterase and WBCs; given normal white blood count and patient being asymptomatic, likely asymptomatic bacteriuria as patient is denying any pain, frequency, or burning with urination 4. Hyperlipidemia 5. Diabetes mellitus type 2 6. Hypertension GI prophylaxis DVT prophylaxis; SCDs only given possibility of acute CVA Full code Discharge disposition Patient is being discharged in a stable condition with guarded prognosis to home. Patient will follow-up with Dr. Esteban in the outpatient setting upon discharge. Patient is to continue with aspirin and statin therapy and outpatient follow-up with neurology as scheduled. Total time taken is greater than 35 minutes. Hospital course This is a 88-year-old male who was recently admitted with right-sided numbness and visual changes with facial droop with concerns of CVA evaluated by neurology. Patient underwent MRI and confirmed CVA and there was question initially of possible small bleed although ruled out after further review on MRI and CT imaging. Patient will continue on aspirin and statin and outpatient follow-up with neurology. Patient was evaluated by physical therapy doing well and will be going home. Instructed to follow-up with primary care provider on discharge. Please refer to other consultation notes for further HPI. Currently no reports of chest pain, shortness of breath, or palpitations. Patient is a febrile. No reports of nausea or vomiting and patient is tolerating diet. Patient will be discharged home today. Guarded prognosis and high risk for readmissions given patient's comorbidities and age Physical exam: Gen: This is a 88-year-old male who is awake, alert and oriented x 3, well- developed, elderly appearing HEENT: Head is atraumatic, normocephalic. Pupils equal, round. Sclerae is a nicteric. NECK: Supple. No JVD. No lymphadenopathy. No thyromegaly. LUNGS: Clear to auscultation. No wheezes S1, S2 are muffled regular rate and rhythm. No murmur. ABDOMEN: Soft. Bowel sounds are present. No masses. No tenderness. EXTREMITIES: No pedal edema. No calf tenderness. Bilateral upper and lower extremity strength equal 5/5 NEUROLOGICAL: Patient is awake, alert and oriented x3. Cranial nerves 2 through 12 are grossly intact. Please refer to medication reconciliation sheet for a list of medications. The impression and plan of care has been dictated by Pamela Mitchell, Nurse Practitioner as directed. Dr. Dasha MD I have performed a history and examination and MDM of this patient, discussed the same with the dictator, and agree with the dictator's assessment and plan as written ,documented as a scribe. Based on total visit time, I have performed more than 50% of the visit. Patient Condition at Discharge: Fair Plan - Discharge Summary Discharge Rx Participant: No New Discharge Prescriptions: New Atorvastatin [Lipitor] 20 mg PO DAILY #30 tab Acetaminophen Tab [Tylenol] 650 mg PO Q6HR PRN tab PRN Reason: Mild Pain Or Fever > 100.5 Aspirin 81 mg PO DAILY #30 tab Continue Metoprolol Succinate (ER) [Toprol XL] 50 mg PO DAILY sitaGLIPtin [Januvia] 100 mg PO DAILY Valsartan 320 mg PO DAILY Meclizine [Antivert] 25 mg PO TID PRN PRN Reason: Vertigo Glimepiride [Amaryl] 2 mg PO HS Discontinued Atorvastatin [Lipitor] 10 mg PO DAILY Discharge Medication List Glimepiride [Amaryl] 2 mg PO HS 01/28/24 [History] Meclizine [Antivert] 25 mg PO TID PRN 01/28/24 [History] Metoprolol Succinate (ER) [Toprol XL] 50 mg PO DAILY 01/28/24 [History] Valsartan 320 mg PO DAILY 01/28/24 [History] sitaGLIPtin [Januvia] 100 mg PO DAILY 01/28/24 [History] Acetaminophen Tab [Tylenol] 650 mg PO Q6HR PRN tab 02/02/24 [Rx] Aspirin 81 mg PO DAILY #30 tab 02/02/24 [Rx] Atorvastatin [Lipitor] 20 mg PO DAILY #30 tab 02/02/24 [Rx] Follow up Appointment(s)/Referral(s): Gisella Esteban DO [Primary Care Provider] - 1-2 days Jean Pandya DO [STAFF PHYSICIAN] - 1 Week Patient Instructions/Handouts: Transient Ischemic Attack (DC) Activity/Diet/Wound Care/Special Instructions: Activity limited until follow-up Follow-up with primary care provider on discharge Follow-up with neurology outpatient Continue taking medications as prescribed Discharge Disposition: HOME SELF-CARE
== END 2024-02-02 13:39 | disposition home or self-care (01) | DRG 65 ==
LOC: EC 10:53 → 6NMEDSUR 12:40 → 3SCARD 01-31 14:23 → OBSVTOIN 02-01 10:19
PROVIDERS: ADMIT Hospitalist; ATTEND Hospitalist
DX: I61.0 Nontraumatic intracerebral hemorrhage in hemisphere, subcortical (principal); N17.9 Acute kidney failure, unspecified; H57.9 Unspecified disorder of eye and adnexa; R20.0 Anesthesia of skin; E11.22 Type 2 diabetes mellitus with diabetic chronic kidney disease; N18.30 Chronic kidney disease, stage 3 unspecified; I12.9 Hypertensive chronic kidney disease with stage 1 through stage 4 chronic kidney disease, or unspecified chronic kidney disease; H54.61 Unqualified visual loss, right eye, normal vision left eye; I08.1 Rheumatic disorders of both mitral and tricuspid valves; E78.00 Pure hypercholesterolemia, unspecified; Z79.84 Long term (current) use of oral hypoglycemic drugs; Z79.899 Other long term (current) drug therapy; Z85.828 Personal history of other malignant neoplasm of skin; Z86.73 Personal history of transient ischemic attack (TIA), and cerebral infarction without residual deficits; Z88.0 Allergy status to penicillin; Z88.8 Allergy status to other drugs, medicaments and biological substances
CPT/HCPCS: 36415; 70450; 70496; 70498; 70553; 71046; 72156; 80048; 80053; 80061; 81001; 83735; 84443; 84484; 85025; 85610; 85730; 87077; 87086; 87186; 93005; 93306; 96360; 96361; 99285

== ENCOUNTER 2024-02-04 02:08 | Observation (INO) | payer MEDICARE ==
--- NOTE | 2024-02-04 03:05 | XR ---
EXAM: XR Chest, 2 Views CLINICAL HISTORY: ITS.REASON XR Reason: altered mental status TECHNIQUE: Frontal and lateral views of the chest. COMPARISON: No relevant prior studies available. FINDINGS: Lungs: No consolidation or mass. Pleural space: No effusion. Heart: cardiomegaly. Bones/joints: No acute findings. IMPRESSION: No acute cardiopulmonary process.
--- NOTE | 2024-02-04 03:06 | CT ---
EXAM: CT Head Without Intravenous Contrast CLINICAL HISTORY: ITS.REASON CT Reason: Neuro deficit, acute, stroke suspected TECHNIQUE: Axial computed tomography images of the head/brain without intravenous contrast. CTDI is 49.2 mGy and DLP is 1168.4 mGy-cm. This CT exam was performed using one or more of the following dose reduction techniques: automated exposure control, adjustment of the mA and/or kV according to patient size, and/or use of iterative reconstruction technique. COMPARISON: No relevant prior studies available. FINDINGS: Brain: No hemorrhage or mass effect. Senescent changes Ventricles: No hydrocephalus. Bones/joints: Unremarkable. Soft tissues: Unremarkable. Sinuses: No air fluid level. Mastoid air cells: Clear. IMPRESSION: No acute hemorrhage, hydrocephalus, or mass effect.
[2024-02-04 03:37] LABS: Basophils # (A) 0.1 k/uL (0-0.2); Basophils % (A) 1 %; Eosinophils # (A) 0.4 k/uL (0-0.7); Eosinophils % (A) 5 %; HCT 41.6 % (39.0-53.0); HGB 13.4 gm/dL (13.0-17.5); Lymphocytes # (A) 1.8 k/uL (1.0-4.8); Lymphocytes % (A) 24 %; MCH 30.6 pg (25.0-35.0); MCHC 32.1 g/dL (31.0-37.0); MCV 95.2 fL (80.0-100.0); Mean Platelet Volume 7.8; Monocytes # (A) 0.5 k/uL (0-1.0); Monocytes % (A) 7 %; Neutrophils # (A) 4.5 k/uL (1.3-7.7); Neutrophils % (A) 61 %; Platelet Count 167 k/uL (150-450); RBC 4.37 m/uL (4.30-5.90); RDW 14.3 % (11.5-15.5); WBC 7.4 k/uL (3.8-10.6)
[2024-02-04 03:46] LABS: INR 0.9 (<1.2); Partial Thromboplastin Time 22.6 sec (22.0-30.0); Prothrombin Time 10.4 sec (10.0-12.5)
[2024-02-04 03:51] LABS: ALT 65 U/L (4-49); AST 46 U/L (17-59); African American GFR (CKD) 43 (>60 ml/min/1.73 sqM); Albumin 3.8 g/dL (3.5-5.0); Alkaline Phosphatase 90 U/L (38-126); Anion Gap 9 mmol/L; Blood Urea Nitrogen 33 mg/dL (9-20); Calcium 9.3 mg/dL (8.4-10.2); Carbon Dioxide 21 mmol/L (22-30); Chloride 108 mmol/L (98-107); Creatine Kinase 110 U/L (55-170); Glucose 121 mg/dL (74-99); Non-African American GFR(CKD) 37 (>60 ml/min/1.73 sqM); Potassium 4.4 mmol/L (3.5-5.1); Sodium 138 mmol/L (137-145); Total Bilirubin 0.4 mg/dL (0.2-1.3); Total Protein 6.7 g/dL (6.3-8.2)
[2024-02-04] MEDS ORDERED: NALOXONE 0.4 MG/ML 1 ML VIAL IV PRN (06:14)
[2024-02-04] MEDS ORDERED: ACETAMINOPHEN TAB 325 MG TAB PO PRN (06:35)
[2024-02-04] MEDS ORDERED: MECLIZINE 25 MG TAB PO PRN (06:39)
--- NOTE | 2024-02-04 06:53 | ED ---
General Adult HPI - General Chief complaint: Neuro Symptoms/Deficit Stated complaint: Neuro S/s Time Seen by Provider: 02/04/24 02:20 Source: patient Mode of arrival: wheelchair - History of Present Illness Initial comments: This patient is an 88-year-old man who presents to have evaluation for numbness and tingling to the bilateral arms and face. The patient states that he had been admitted here () to have evaluation of similar symptoms and was told that he had had a TIA. When I review the records related to that previous episode it appears that at that time he was describing unilateral symptoms. Today the patient is adamant that he is having bilateral face and arm symptoms. He states that to his recollection with the previous episode he was having some bilateral symptoms as well. This episode came on approximately 1 and half to 2 hours ago while he was asleep. The patient states that he may have awakened also with a little bit of dyspnea. He denies definite chest pain. No diaphoresis, palpitations, nausea or vomiting. Patient denies headache, other sensory or motor symptoms. Onset/Timin -: hour(s) Severity scale (1-10): 0 Consistency: constant Improves with: none Worsens with: none - Related Data Home Medications Medication Instructions Recorded Confirmed Glimepiride [Amaryl] 2 mg PO HS 01/28/24 01/28/24 Meclizine [Antivert] 25 mg PO TID PRN 01/28/24 01/28/24 Metoprolol Succinate (ER) [Toprol 50 mg PO DAILY 01/28/24 01/28/24 XL] Valsartan 320 mg PO DAILY 01/28/24 01/28/24 sitaGLIPtin [Januvia] 100 mg PO DAILY 01/28/24 01/28/24 Previous Rx's Medication Instructions Recorded Acetaminophen Tab [Tylenol] 650 mg PO Q6HR PRN tab 02/02/24 Aspirin 81 mg PO DAILY #30 tab 02/02/24 Atorvastatin [Lipitor] 20 mg PO DAILY #30 tab 02/02/24 Allergies Allergy/AdvReac Type Severity Reaction Status Date / Time metformin Allergy Rash/Hives Verified 02/04/24 02:13 peas Allergy Unknown Verified 02/04/24 02:13 Penicillins Allergy Rash/Hives Verified 02/04/24 02:13 Review of Systems ROS Statement: Those systems with pertinent positive or pertinent negative responses have been documented in the HPI. ROS Other: All systems not noted in ROS Statement are negative. Constitutional: Denies: fever, chills, weakness Eyes: Denies: vision change Respiratory: Denies: cough, dyspnea Cardiovascular: Denies: chest pain, palpitations, syncope Gastrointestinal: Denies: abdominal pain, nausea, vomiting Genitourinary: Denies: dysuria Musculoskeletal: Denies: back pain Skin: Denies: rash Neurological: Reports: paresthesias. Denies: headache, weakness, numbness Past Medical History Past Medical History: Diabetes Mellitus, Hyperlipidemia, Hypertension History of Any Multi-Drug Resistant Organisms: None Reported Past Surgical History: No Surgical Hx Reported Additional Past Surgical History / Comment(s): left knee 8 years ago. Past Psychological History: No Psychological Hx Reported Smoking Status: Never smoker Past Alcohol Use History: None Reported Past Drug Use History: None Reported General Exam General appearance: alert, in no apparent distress Head exam: Present: atraumatic, normocephalic Eye exam: Present: normal appearance. Absent: scleral icterus, conjunctival injection ENT exam: Present: normal oropharynx Neck exam: Present: normal inspection Respiratory exam: Present: normal lung sounds bilaterally. Absent: respiratory distress, wheezes, rales, rhonchi, stridor, accessory muscle use Cardiovascular Exam: Present: regular rate, normal rhythm, normal heart sounds. Absent: systolic murmur, diastolic murmur, rubs, gallop GI/Abdominal exam: Present: soft. Absent: distended, tenderness, guarding, rebound, rigid, mass Extremities exam: Present: normal inspection, normal capillary refill. Absent: pedal edema, calf tenderness Back exam: Present: normal inspection. Absent: CVA tenderness (R), CVA tenderness (L) Neurological exam: Present: alert, oriented X3, CN II-XII intact. Absent: motor sensory deficit Skin exam: Present: warm, dry, intact, normal color. Absent: rash Course Vital Signs 02/04/24 02/04/24 02/04/24 02:09 04:12 06:59 Temperature 98.1 F Pulse Rate 68 60 53 L Respiratory 18 18 18 Rate Blood Pressure 158/87 105/87 145/74 O2 Sat by Pulse 96 97 Oximetry EKG Findings - EKG Results: EKG: interpreted by ERMD, sinus rhythm, normal ST/T EKG shows: bradycardia (Rate 59 bpm) - Blocks, [place], Hypertrophy, ST Abn: QRS axis and voltage: left axis deviation (-30 to -90) - WI, Pacemaker, Normal: Myocardial infarction: anterior WI (old age or indeterminate) (Q waves lead V1 - V3) Medical Decision Making - Medical Decision Making Patient is 88-year-old man with paresthesias bilateral upper extremities and face. Patient did have recent neurology workup which after my review of the studies seems was unremarkable. Will have patient observation to rule out cardiac source. - Lab Data Result diagrams: 02/04/24 03:15 02/04/24 03:15 Lab Results 02/04/24 02/04/24 02/04/24 Range/Units 03:15 03:15 03:15 WBC 7.4 (3.8-10.6) k/uL RBC 4.37 (4.30-5.90) m/uL Hgb 13.4 (13.0-17.5) gm/dL Hct 41.6 (39.0-53.0) % MCV 95.2 (80.0-100.0) fL MCH 30.6 (25.0-35.0) pg MCHC 32.1 (31.0-37.0) g/dL RDW 14.3 (11.5-15.5) % Plt Count 167 (150-450) k/uL MPV 7.8 Neutrophils % 61 % Lymphocytes % 24 % Monocytes % 7 % Eosinophils % 5 % Basophils % 1 % Neutrophils # 4.5 (1.3-7.7) k/uL Lymphocytes # 1.8 (1.0-4.8) k/uL Monocytes # 0.5 (0-1.0) k/uL Eosinophils # 0.4 (0-0.7) k/uL Basophils # 0.1 (0-0.2) k/uL PT 10.4 (10.0-12.5) sec INR 0.9 (<1.2) APTT 22.6 (22.0-30.0) sec Sodium 138 (137-145) mmol/L Potassium 4.4 (3.5-5.1) mmol/L Chloride 108 H (98-107) mmol/L Carbon Dioxide 21 L (22-30) mmol/L Anion Gap 9 mmol/L BUN 33 H (9-20) mg/dL Creatinine 1.63 H (0.66-1.25) mg/dL Est GFR (CKD-EPI)AfAm 43 (>60 ml/min/1.73 sqM) Est GFR (CKD-EPI)NonAf 37 (>60 ml/min/1.73 sqM) Glucose 121 H (74-99) mg/dL Calcium 9.3 (8.4-10.2) mg/dL Total Bilirubin 0.4 (0.2-1.3) mg/dL AST 46 (17-59) U/L ALT 65 H (4-49) U/L Alkaline Phosphatase 90 (38-126) U/L Creatine Kinase 110 (55-170) U/L Troponin I (0.000-0.034) ng/mL Total Protein 6.7 (6.3-8.2) g/dL Albumin 3.8 (3.5-5.0) g/dL 02/04/24 Range/Units 03:15 WBC (3.8-10.6) k/uL RBC (4.30-5.90) m/uL Hgb (13.0-17.5) gm/dL Hct (39.0-53.0) % MCV (80.0-100.0) fL MCH (25.0-35.0) pg MCHC (31.0-37.0) g/dL RDW (11.5-15.5) % Plt Count (150-450) k/uL MPV Neutrophils % % Lymphocytes % % Monocytes % % Eosinophils % % Basophils % % Neutrophils # (1.3-7.7) k/uL Lymphocytes # (1.0-4.8) k/uL Monocytes # (0-1.0) k/uL Eosinophils # (0-0.7) k/uL Basophils # (0-0.2) k/uL PT (10.0-12.5) sec INR (<1.2) APTT (22.0-30.0) sec Sodium (137-145) mmol/L Potassium (3.5-5.1) mmol/L Chloride (98-107) mmol/L Carbon Dioxide (22-30) mmol/L Anion Gap mmol/L BUN (9-20) mg/dL Creatinine (0.66-1.25) mg/dL Est GFR (CKD-EPI)AfAm (>60 ml/min/1.73 sqM) Est GFR (CKD-EPI)NonAf (>60 ml/min/1.73 sqM) Glucose (74-99) mg/dL Calcium (8.4-10.2) mg/dL Total Bilirubin (0.2-1.3) mg/dL AST (17-59) U/L ALT (4-49) U/L Alkaline Phosphatase (38-126) U/L Creatine Kinase (55-170) U/L Troponin I 0.022 (0.000-0.034) ng/mL Total Protein (6.3-8.2) g/dL Albumin (3.5-5.0) g/dL Disposition Clinical Impression: Paresthesia of both hands Disposition: ADMITTED IP TO THIS [facility] Condition: Fair Referrals: Gisella Grey DO [Primary Care Provider] - 1-2 days
[2024-02-04] MEDS: SODIUM CHLORIDE 0.9% 1,000 ML IV SCH (07:08)
--- NOTE | 2024-02-04 08:56 | P.CNNES ---
History of Present Illness Consult date: 02/04/28 Reason for Consult: 3 of the left putaminal intracerebral hemorrhage with recent bilateral arm Chief complaint: "I awoke last night and my arms felt numb." History of Present Illness: Mr. Mratell is an 88-year-old male with history of hypertension, diabetes, hyperlipidemia, chronic kidney disease stage III. Patient was recently admitted to the hospital on January 27 through February 01 with symptoms of arm and face numbness on the left side as well as some vision loss for approximately 2 hours. He underwent an extensive workup with an MRI negative for ischemic stroke but revealing a possible hemosiderin deposition in the left putamen of the basal ganglia. While he was here he had fluctuating symptoms and had 1 event concerning for new stroke with increased left-sided weakness. However again he did not have an ischemic deficit on his MRI. He had an echocardiogram January 30 revealing ejection fraction of 71% with moderate pulmonary hypertension. His LDL was 53 at that time and A1c was 73. He was discharged on February 01 with prescription for aspirin 81 mg daily as well as Lipitor 20 mg daily. The patient returned to [facility] last night February 02 complaining of symptoms of bilateral arm numbness and weakness which she suffered when he awoke from sleep at approximately 1 AM. He stated the symptoms persisted for approximately 2 hours and appears to have resolved at this time. CT scan of the head noncontrast was performed last night was negative as well as chest x-ray negative. The patient was given the option of possibly going home versus remaining in the hospital and he chose to remain in the hospital. Neurology has been consulted for further management recommendations. Review of Systems Constitutional: Reports as per HPI Ears, nose, mouth and throat: Reports as per HPI Cardiovascular: Reports as per HPI Respiratory: Reports as per HPI Gastrointestinal: Reports as per HPI, Reports diarrhea Genitourinary: Reports as per HPI Musculoskeletal: Reports as per HPI Integumentary: Reports as per HPI Neurological: Reports as per HPI Endocrine: Reports cold intolerance Hematologic/Lymphatic: Reports as per HPI Allergic/Immunologic: Reports as per HPI Past Medical History Past Medical History: Diabetes Mellitus, Hyperlipidemia, Hypertension History of Any Multi-Drug Resistant Organisms: None Reported Past Surgical History: No Surgical Hx Reported Additional Past Surgical History / Comment(s): left knee 8 years ago. Past Psychological History: No Psychological Hx Reported Smoking Status: Never smoker Past Alcohol Use History: None Reported Past Drug Use History: None Reported Medications and Allergies Home Medications Medication Instructions Recorded Confirmed Type Glimepiride [Amaryl] 2 mg PO HS 01/28/24 01/28/24 History Meclizine [Antivert] 25 mg PO TID PRN 01/28/24 01/28/24 History Metoprolol Succinate (ER) [Toprol 50 mg PO DAILY 01/28/24 01/28/24 History XL] Valsartan 320 mg PO DAILY 01/28/24 01/28/24 History sitaGLIPtin [Januvia] 100 mg PO DAILY 01/28/24 01/28/24 History Acetaminophen Tab [Tylenol] 650 mg PO Q6HR PRN tab 02/02/24 Rx Aspirin 81 mg PO DAILY #30 tab 02/02/24 Rx Atorvastatin [Lipitor] 20 mg PO DAILY #30 tab 02/02/24 Rx Allergies Allergy/AdvReac Type Severity Reaction Status Date / Time metformin Allergy Rash/Hives Verified 02/04/24 02:13 peas Allergy Unknown Verified 02/04/24 02:13 Penicillins Allergy Rash/Hives Verified 02/04/24 02:13 Physical Examination - Vital Signs Vital Signs: Vital Signs Temp Pulse Resp BP Pulse Ox 02/04/24 06:59 53 L 18 145/74 97 02/04/24 04:12 60 18 105/87 02/04/24 02:09 98.1 F 68 18 158/87 96 Intake and Output 02/03/24 02/04/24 02/04/24 22:59 06:59 14:59 Other: Weight 102.058 kg - Constitutional General appearance: average body habitus - EENT EENT: PERRL - Respiratory Respiratory: chest non-tender, lungs clear, normal breath sounds - Cardiovascular Cardiovascular: regular rate, no murmurs Extremities: no peripheral edema bilaterally, no clubbing, cyanosis - Gastrointestinal Gastrointestinal: normoactive bowel sounds, non-tender, tender - Integumentary Integumentary: normal - Neurologic Cranial nerve examination: PERRL, EOMI, VFF, V1/V2/V3 grossly intact, face symmetric, tongue midline, intact Speech examination: intact Sensorimotor examination: other (Patient has 5 out of 5 strength in his right upper extremity. Upper extremity shoulder extensors approximately 5- out of 5 which may not be changed from his previous admission. Bilateral lower extremities are roughly 5- out of 5. He has some difficulty raising due to arthritis) Detailed sensory examination: intact Reflex and gait examination: intact Results Contrast CT of the head from February 03 as well as chest x-ray from the February 03 were read as negative. - Laboratory Findings CBC and BMP: 02/04/24 03:15 02/04/24 03:15 Abnormal Lab Findings: Abnormal Labs 02/04/24 03:15 Chloride 108 H Carbon Dioxide 21 L BUN 33 H Creatinine 1.63 H Glucose 121 H ALT 65 H Assessment and Plan Assessment: Mr. Martell is an 88-year-old male with history of hypertension, diabetes, hyperlipidemia, congestive chronic kidney disease stage III as well as history of TIA with right putaminal chronic intracerebral hemorrhage noted on MRI from January 30. He returns to the hospital after episode where he suffered bilateral arm numbness with mild weakness which lasted approximately 2 hours. At this time, he has some mild left arm weakness which does not appear different than then when he left the hospital. CT scan as well as chest x-ray were negative. I believe this patient may have suffered a fluctuating event from his subcortical lesion. Plan: 1. Patient will remain in house today to observe for further exacerbations or remissions of weakness. 2. I have ordered noncontrast CT of the head to be performed tomorrow morning to look for any evidence of significant lesion. 3. I will not opt for an MRI of the brain at this time as his symptoms appear to have resolved and occurred bilaterally. 4. She will continue to follow the patient in house and make further recommendations as needed. Time with Patient: Less than 30
[2024-02-04] MEDS: FAMOTIDINE 20 MG TAB PO SCH (09:06)
[2024-02-04] MEDS: ASPIRIN 81 MG PO SCH (09:06)
[2024-02-04] MEDS: ATORVASTATIN 20 MG TAB PO SCH (09:06)
[2024-02-04] MEDS: VALSARTAN 160 MG TAB PO SCH (09:06)
[2024-02-04] MEDS: LINAGLIPTIN 5 MG TABLET PO SCH (09:06)
[2024-02-04] MEDS: METOPROLOL SUCCINATE (ER) 50 MG TAB.ER.24H PO SCH (09:31)
[2024-02-04 12:17] LABS: Glucose,Whole Blood 117 mg/dL (70-110)
[2024-02-04 17:06] LABS: Glucose,Whole Blood 194 mg/dL (70-110)
[2024-02-04] MEDS: GLIMEPIRIDE 2 MG TAB PO SCH (20:30)
[2024-02-04 20:45] LABS: Glucose,Whole Blood 171 mg/dL (70-110)
[2024-02-05 05:46] LABS: Glucose,Whole Blood 105 mg/dL (70-110)
[2024-02-05] MEDS: FAMOTIDINE 20 MG TAB PO SCH (08:10)
--- NOTE | 2024-02-05 11:11 | P.PN ---
Subjective Progress Note Date: 02/05/24 Principal diagnosis: History of TIA with transient bilateral upper arm numbness and weakness yesterday morning. Mr. Martell is an 88-year-old male with history of hypertension, diabetes, hyperlipidemia, chronic kidney disease stage III. Patient was recently admitted to the hospital on January 27 through February 01 with symptoms of arm and face numbness on the left side as well as some vision loss for approximately 2 hours. He underwent an extensive workup with an MRI negative for ischemic stroke but revealing a possible hemosiderin deposition in the left putamen of the basal ganglia. While he was here he had fluctuating symptoms and had 1 event concerning for new stroke with increased left-sided weakness. However again he did not have an ischemic deficit on his MRI. He had an echocardiogram January 30 revealing ejection fraction of 71% with moderate pulmonary hypertension. His LDL was 53 at that time and A1c was 73. He was discharged on February 01 with prescription for aspirin 81 mg daily as well as Lipitor 20 mg daily. The patient returned to [facility] February 02 complaining of symptoms of bilateral arm numbness and weakness which she suffered when he awoke from sleep at approximately 1 AM. He stated the symptoms persisted for approximately 2 hours and appears to have resolved at this time. CT scan of the head noncontrast was performed last night was negative as well as chest x-ray negative. The patient was given the option of possibly going home versus remaining in the hospital and he chose to remain in the hospital. Neurology was consulted and recommended repeat noncontrast CT in the morning February 04 to determine disposition based on evidence of stroke. On reevaluation February 04, the patient denies any events overnight. He feels well and ready to go home. He has a nonfocal neurologic exam. His CT of the head has not been performed as of yet. If this is read is negative I believe the patient may be able to be discharged home. Mr. Martell is an 88-year-old male with history of hypertension, diabetes, hyperlipidemia, congestive chronic kidney disease stage III as well as history of TIA with right putaminal chronic intracerebral hemorrhage noted on MRI from January 30. He returns to the hospital after episode where he suffered bilateral arm numbness with mild weakness which lasted approximately 2 hours. At this time, he has some mild left arm weakness which does not appear different than then when he left the hospital. CT scan as well as chest x-ray were negative. I believe this patient may have suffered a fluctuating event from his subcortical lesion. 1. He is due to have his noncontrast CT of the head. If this appears negative with no evidence of new lesion the patient may be safely discharged home. 2. If the patient does continue on aspirin, neurology will continue to follow him on an intermittent basis. Objective - Vital Signs Vital signs: Vital Signs Temp 98.1 F 02/05/24 07:00 Pulse 61 02/05/24 09:53 Resp 18 02/05/24 09:53 BP 165/77 02/05/24 07:00 Pulse Ox 96 02/05/24 07:00 FiO2 Intake & Output 02/04/24 02/05/24 02/05/24 18:59 06:59 18:59 Intake Total 240 1040 Balance 240 1040 Weight 102.058 kg Intake: Oral 240 1040 Other: Voiding Method Toilet Toilet # Voids 2 3 - Labs CBC & Chem 7: 02/04/24 03:15 02/04/24 03:15 Labs: Abnormal Lab Results - Last 24 Hours (Table) 02/04/24 02/04/24 02/04/24 Range/Units 12:16 17:05 20:44 POC Glucose (mg/dL) 117 H 194 H 171 H (70-110) mg/dL
[2024-02-05 12:10] LABS: Glucose,Whole Blood 181 mg/dL (70-110)
--- NOTE | 2024-02-05 13:43 | CT ---
EXAMINATION TYPE: CT brain wo con DATE OF EXAM: 02/05/2024 1:31 PM COMPARISON: 02/04/2024. CLINICAL INDICATION: Male, 88 years old with history of bilateral arm/leg weakness, bilateral arm/leg weakness TECHNIQUE: Brain: Axial CT images of the brain were obtained with coronal and sagittal reformats created and rev iewed. Contrast used: None. Oral contrast used: None. CT DLP: 1177 mGycm, Automated exposure control for dose reduction was used. FINDINGS: Brain: Extra-axial spaces: No abnormal extra-axial fluid collections. Ventricular system: Within normal limits Cerebral parenchyma: No acute intraparenchymal hemorrhage or mass effect. The vasquez-white junction is well differentiated. Cerebellum: Unremarkable. Mass effect: No evidence of midline shift. Intracranial vasculature: Atherosclerotic calcifications of the intracranial vessels. Soft tissues: Normal. Calvarium/osseous structures: No depressed skull fracture. Paranasal sinuses and mastoid air cells: Mild scattered paranasal sinus disease. Visualized orbits: Orbital contents are intact. IMPRESSION: No acute intracranial process. [facility], , 02/05/2024 1:41 PM
[2024-02-05 14:10] VITALS: BP 169/90; PULSE 59; RESP 16; TEMP 98.3
--- NOTE | 2024-02-05 14:41 | P.DS ---
Providers Date of admission: 02/04/24 06:14 Attending physician: Ignacio Garcia Consults: 02/04/24 06:35 Consult Physician Routine Consulting Provider: Emery Hdz Consult Reason/Comments: paresthesia Do you want consulting provider notified?: Yes Primary care physician: Gisella Grey [facility] Course: Patient is a pleasant 88-year-old male with symptoms of tingling and numbness of bilateral upper extremities entire arms, resolved in 2 hours. Patient denies any neck pain chronic neck issues. Patient was recently hospitalized for evaluation of TIA. He had right-sided tingling numbness and underwent extensive workup for stroke and MRI showed was having the position in the left basal ganglia. Neurology evaluated the patient. Had a CT which was repeated. Repeat CT is essentially within normal limits admission CT did not show any significant abnormality other patient is cleared for discharge from neurology perspective. Patient has really good strength in bilateral upper extremities REVIEW OF SYSTEMS: All other systems are negative except those mentioned in the HPI PHYSICAL EXAMINATION: GENERAL: The patient is alert and oriented x3, not in any acute distress. Well developed, well nourished. HEENT: Pupils are round and equally reacting to light. EOMI. No scleral icterus. No conjunctival pallor. Normocephalic, atraumatic. No pharyngeal erythema. No thyromegaly. CARDIOVASCULAR: S1 and S2 present. No murmurs, rubs, or gallops. PULMONARY: Chest is clear to auscultation, no wheezing or crackles. ABDOMEN: Soft, nontender, nondistended, normoactive bowel sounds. No palpable organomegaly. MUSCULOSKELETAL: No joint swelling or deformity. EXTREMITIES: No cyanosis, clubbing, or pedal edema. NEUROLOGICAL: Gross neurological examination did not reveal any focal deficits. SKIN: No rashes. Assessment and plan -Bilateral upper extremity numbness: Patient clinically does not have any significant cervical spine disease if he continues to have no symptoms patient need to be evaluated for cervical spine disease and a radiculopathy patient's symptoms are not consistent with stroke at this time. Although her had a recent workup of her stroke and is on a statin 20 mg and aspirin 81 mg daily -Type 2 diabetes mellitus -Hyperlipidemia -Hypertension Problem mentioned chronic medical problems patient was resumed on appropriate home medications. Patient will be discharged today. Patient Condition at Discharge: Fair Plan - Discharge Summary Discharge Rx Participant: No New Discharge Prescriptions: Continue Metoprolol Succinate (ER) [Toprol XL] 50 mg PO DAILY sitaGLIPtin [Januvia] 100 mg PO DAILY Atorvastatin [Lipitor] 20 mg PO DAILY #30 tab Acetaminophen Tab [Tylenol] 650 mg PO Q6HR PRN tab PRN Reason: Mild Pain Or Fever > 100.5 Valsartan 320 mg PO DAILY Meclizine [Antivert] 25 mg PO TID PRN PRN Reason: Vertigo Glimepiride [Amaryl] 2 mg PO HS Aspirin 81 mg PO DAILY #30 tab Discharge Medication List Glimepiride [Amaryl] 2 mg PO HS 01/28/24 [History] Meclizine [Antivert] 25 mg PO TID PRN 01/28/24 [History] Metoprolol Succinate (ER) [Toprol XL] 50 mg PO DAILY 01/28/24 [History] Valsartan 320 mg PO DAILY 01/28/24 [History] sitaGLIPtin [Januvia] 100 mg PO DAILY 01/28/24 [History] Acetaminophen Tab [Tylenol] 650 mg PO Q6HR PRN tab 02/02/24 [Rx] Aspirin 81 mg PO DAILY #30 tab 02/02/24 [Rx] Atorvastatin [Lipitor] 20 mg PO DAILY #30 tab 02/02/24 [Rx] Follow up Appointment(s)/Referral(s): Gisella Grey DO [Primary Care Provider] - 3 Days Discharge Disposition: HOME SELF-CARE
--- NOTE | 2024-02-05 14:41 | P.HPIM ---
History of Present Illness Patient is a pleasant 88-year-old male with symptoms of tingling and numbness of bilateral upper extremities entire arms, resolved in 2 hours. Patient denies any neck pain chronic neck issues. Patient was recently hospitalized for ev aluation of TIA. He had right-sided tingling numbness and underwent extensive workup for stroke and MRI showed was having the position in the left basal ganglia. Neurology evaluated the patient. Had a CT which was repeated. Repeat CT is essentially within normal limits admission CT did not show any significant abnormality other patient is cleared for discharge from neurology perspective. Patient has really good strength in bilateral upper extremities REVIEW OF SYSTEMS: All other systems are negative except those mentioned in the HPI PHYSICAL EXAMINATION: GENERAL: The patient is alert and oriented x3, not in any acute distress. Well developed, well nourished. HEENT: Pupils are round and equally reacting to light. EOMI. No scleral icterus. No conjunctival pallor. Normocephalic, atraumatic. No pharyngeal erythema. No thyromegaly. CARDIOVASCULAR: S1 and S2 present. No murmurs, rubs, or gallops. PULMONARY: Chest is clear to auscultation, no wheezing or crackles. ABDOMEN: Soft, nontender, nondistended, normoactive bowel sounds. No palpable organomegaly. MUSCULOSKELETAL: No joint swelling or deformity. EXTREMITIES: No cyanosis, clubbing, or pedal edema. NEUROLOGICAL: Gross neurological examination did not reveal any focal deficits. SKIN: No rashes. Assessment and plan -Bilateral upper extremity numbness: Patient clinically does not have any significant cervical spine disease if he continues to have no symptoms patient need to be evaluated for cervical spine disease and a radiculopathy patient's symptoms are not consistent with stroke at this time. Although her had a recent workup of her stroke and is on a statin 20 mg and aspirin 81 mg daily -Type 2 diabetes mellitus -Hyperlipidemia -Hypertension Problem mentioned chronic medical problems patient was resumed on appropriate home medications. Patient will be discharged today. Past Medical History Past Medical History: Diabetes Mellitus, Hyperlipidemia, Hypertension History of Any Multi-Drug Resistant Organisms: None Reported Past Surgical History: No Surgical Hx Reported Additional Past Surgical History / Comment(s): left knee 8 years ago. Past Psychological History: No Psychological Hx Reported Smoking Status: Never smoker Past Alcohol Use History: None Reported Past Drug Use History: None Reported Medications and Allergies Home Medications Medication Instructions Recorded Confirmed Type Glimepiride [Amaryl] 2 mg PO HS 01/28/24 02/04/24 History Meclizine [Antivert] 25 mg PO TID PRN 01/28/24 02/04/24 History Metoprolol Succinate (ER) [Toprol 50 mg PO DAILY 01/28/24 02/04/24 History XL] Valsartan 320 mg PO DAILY 01/28/24 02/04/24 History sitaGLIPtin [Januvia] 100 mg PO DAILY 01/28/24 02/04/24 History Acetaminophen Tab [Tylenol] 650 mg PO Q6HR PRN tab 02/02/24 02/04/24 Rx Aspirin 81 mg PO DAILY #30 tab 02/02/24 02/04/24 Rx Atorvastatin [Lipitor] 20 mg PO DAILY #30 tab 02/02/24 02/04/24 Rx Allergies Allergy/AdvReac Type Severity Reaction Status Date / Time metformin Allergy Rash/Hives Verified 02/04/24 10:49 peas Allergy Unknown Verified 02/04/24 10:49 Penicillins Allergy Rash/Hives Verified 02/04/24 10:49 Physical Exam Vitals: Vital Signs Temp Pulse Resp BP Pulse Ox 02/05/24 14:19 59 L 16 02/05/24 14:10 98.3 F 59 L 16 169/90 97 02/05/24 09:53 61 18 02/05/24 07:00 98.1 F 61 18 165/77 96 02/05/24 02:00 98.0 F 50 L 16 145/70 95 02/04/24 20:00 97.9 F 64 16 156/71 97 Intake and Output 02/04/24 02/05/24 02/05/24 22:59 06:59 14:59 Intake Total 560 480 Balance 560 480 Intake: Oral 560 480 Other: Voiding Method Toilet Toilet # Voids 3 3 2 Results CBC & Chem 7: 02/04/24 03:15 02/04/24 03:15 Labs: Abnormal Lab Results - Last 24 Hours (Table) 02/04/24 02/04/24 02/05/24 Range/Units 17:05 20:44 12:09 POC Glucose (mg/dL) 194 H 171 H 181 H (70-110) mg/dL Thrombosis Risk Factor Assmnt - Choose All That Apply Each Factor Represents 1 point: Obesity (BMI >25) Each Risk Factor Represents 3 Points: Age 75 years or older Thrombosis Risk Factor Assessment Total Risk Factor Score: 4 Thrombosis Risk Factor Assessment Level: Moderate Risk
== END 2024-02-05 15:25 | disposition home or self-care (01) ==
LOC: EC 02:08 → 6NMEDSUR 06:14
PROVIDERS: ADMIT Internal Medicine; ATTEND Internal Medicine
DX: R20.0 Anesthesia of skin (principal); R20.2 Paresthesia of skin; R53.1 Weakness; I12.9 Hypertensive chronic kidney disease with stage 1 through stage 4 chronic kidney disease, or unspecified chronic kidney disease; N18.30 Chronic kidney disease, stage 3 unspecified; I27.20 Pulmonary hypertension, unspecified; E11.22 Type 2 diabetes mellitus with diabetic chronic kidney disease; E78.5 Hyperlipidemia, unspecified; H54.7 Unspecified visual loss; I25.2 Old myocardial infarction; E66.9 Obesity, unspecified; Z68.29 Body mass index [BMI] 29.0-29.9, adult; Z79.84 Long term (current) use of oral hypoglycemic drugs; Z79.82 Long term (current) use of aspirin; Z79.899 Other long term (current) drug therapy; Z88.0 Allergy status to penicillin; Z88.8 Allergy status to other drugs, medicaments and biological substances; Z91.018 Allergy to other foods; Z86.73 Personal history of transient ischemic attack (TIA), and cerebral infarction without residual deficits
CPT/HCPCS: 99285; 36415; 93005; 80053; 82550; 84484; 85025; 85610; 85730; 71046; 70450 ×2; G0378 ×2

== ENCOUNTER 2024-08-14 02:53 | Inpatient (IN) | payer MEDICARE ==
--- NOTE | 2024-08-14 03:22 | ED ---
General Adult HPI - General Chief complaint: Chest Pain Stated complaint: Chest pain Time Seen by Provider: 08/14/24 02:57 Source: patient, EMS Mode of arrival: EMS - History of Present Illness Initial comments: This is an 88-year-old gentleman, past medical history of CAD presenting today for chest pain. Started about 2 hours prior to arrival and described as right sided chest pressure radiating down his right arm. He took 2 sublingual nitroglycerin with improvement of his pain to it 3 out of 10. Patient was given 324 mg aspirin by EMS. Patient states pain has improved quite a bit since it started. He currently denies shortness of breath, dizziness, focal numbness or weakness, nausea, vomiting, abdominal pain, fevers, cough or hemoptysis. States that his told him he did look pale and sweaty with the onset of his chest pain. States he was recently admitted for similar about 1 week ago and had a cardiac cath with a stent placed in one of his vessels, was told that 2 of the other blood vessels in his heart were 50% occluded. - Related Data Home Medications Medication Instructions Recorded Confirmed Glimepiride [Amaryl] 2 mg PO DAILY 01/28/24 08/07/24 Meclizine [Antivert] 25 mg PO TID PRN 01/28/24 08/07/24 sitaGLIPtin [Januvia] 100 mg PO DAILY 01/28/24 08/07/24 Furosemide [Lasix] 20 mg PO DAILY 08/07/24 08/07/24 Potassium Chloride 10 meq PO DAILY 08/07/24 08/07/24 Tamsulosin HCl [Flomax] 0.4 mg PO BID 08/07/24 08/07/24 Previous Rx's Medication Instructions Recorded Acetaminophen Tab [Tylenol] 650 mg PO Q4HR PRN tab 08/10/24 Amiodarone [Cordarone] 400 mg PO BID #60 tab 08/10/24 Apixaban [Eliquis] 2.5 mg PO BID #60 tab 08/10/24 Aspirin 81 mg PO DAILY #30 tab 08/10/24 Atorvastatin [Lipitor] 40 mg PO HS #30 tab 08/10/24 Clopidogrel [Plavix] 75 mg PO DAILY #30 tab 08/10/24 Metoprolol Tartrate [Lopressor] 25 mg PO BID #60 tab 06/05/25 Nitroglycerin Sl Tabs [Nitrostat] 0.4 mg SUBLINGUAL Q5M PRN #20 tab 08/10/24 Allergies Allergy/AdvReac Type Severity Reaction Status Date / Time dapagliflozin [From [facility]] Allergy Unknown Verified 08/14/24 02:57 metformin Allergy Rash/Hives Verified 08/14/24 02:57 peas Allergy Unknown Verified 08/14/24 02:57 Penicillins Allergy Rash/Hives Verified 08/14/24 02:57 Review of Systems ROS Statement: Those systems with pertinent positive or pertinent negative responses have been documented in the HPI. ROS Other: All systems not noted in ROS Statement are negative. Past Medical History Past Medical History: Diabetes Mellitus, Hyperlipidemia, Hypertension History of Any Multi-Drug Resistant Organisms: None Reported Past Surgical History: No Surgical Hx Reported Additional Past Surgical History / Comment(s): left knee 8 years ago. Past Psychological History: No Psychological Hx Reported Smoking Status: Never smoker Past Alcohol Use History: None Reported Past Drug Use History: None Reported - Past Family History Father History Unknown: Yes Mother History Unknown: Yes General Exam - General Exam Comments Initial Comments: PE: CONSTITUTIONAL: [no apparent distress, well appearing] SKIN: [warm, dry, no jaundice, hives or petechiae] EYES:[ pupils are equally round, extraocular movements intact without nystagmus, clear conjunctiva, non-icteric sclera] HENT: [normocephalic, atraumatic, moist mucus membranes, oropharynx clear without exudates] NECK: , [Full range of motion, normal appearance] PULMONARY: [clear to auscultation without wheezes, rhonchi, or rales, normal excursion, no accessory muscle use and no stridor] CARDIOVASCULAR:[ regular rate, rhythm, normal S1 and S2. No appreciated murmurs, rubs or gallops. Strong radial pulses with intact distal perfusion. No lower extremity edema] GASTROINTESTINAL: [soft, active bowel sounds throughout, non-tender, non- distended, no palpable masses, no rebound or guarding. No hepatosplenomegaly] GENITOURINARY: MUSCULOSKELETAL: [Extremities have no gross deformity, no edema, redness, or swelling. No calf swelling ] NEUROLOGIC: [_a/o x 3, GCS 15, normal mentation and speech. Moves all extremities x 4 without motor or sensory deficit] PSYCHIATRIC:[ _normal mood and affect, thought process is clear and linear] Course Vital Signs 08/14/24 08/14/24 02:54 05:01 Temperature 98.3 F Pulse Rate 65 55 L Respiratory 18 18 Rate Blood Pressure 127/81 98/60 O2 Sat by Pulse 96 95 Oximetry EKG Findings - EKG Comments: EKG Findings:: EKG #1, obtained at 2:58 AM. Sinus rhythm with first-degree AV block, rate 63 bpm NH interval 295 ms QT/QTc 442/449 ms, no significant ST elevations or depressions, left axis deviation. EKG #2 obtained at 3:08 AM. Sinus rhythm with first-degree AV block, rate 63 bpm, NH int 292 ms QT/QTc 438/446 ms, no significant changes from EKG obtained upon arrival. Repeat EKG obtained at 5:30 AM, showed sinus bradycardia first-degree AV block rate 55 bpm, no new ST elevations or depressions, no arrhythmia Medical Decision Making - Medical Decision Making Was pt. sent in by a medical professional or institution (, PA, GENERAL LITHOGRAPHIC WORKER, urgent care, hospital, or penitentiary...) When possible be specific @ -[No] Did you speak to anyone other than the patient for history (EMS, parent, family, police, friend...)? What history was obtained from this source @ -[No] Did you review nursing and triage notes (agree or disagree)? Why? @ -[I reviewed nursing and triage notes] Were old charts reviewed (outside hosp., previous admission, EMS record, old EKG, old radiological studies, urgent care reports/EKG's, penitentiary records)? Report findings @ -[Medical records reviewed]- Reviewed PCI report from 08/07/2024, reads as CAD with 40 to 50% mid LAD, 100% circumflex and distal RCA, 60 to 70% stenosis, PCI was performed and patient was discharged on aspirin and Plavix Differential Diagnosis (chest pain, altered mental status, abdominal pain women, abdominal pain men, vaginal bleeding, weakness, fever, dyspnea, syncope, headache, dizziness, GI bleed, back pain, seizure, CVA, palpatations, mental health, musculoskeletal)? @Differential Chest Pain: Stable Angina, Unstable Angina, STEMI, NSTEMI Aortic Dissection, pericarditis, pleurisy, chostochondirits, Pneumothorax, Musculoskeletal, Esophageal Spasm GERD, Cholecystitis, Pancreatitis, Zoster, this is not meant to be an all- inclusive list. EKG interpreted by me (3pts min.). @ -[As above] X-rays interpreted by me (1pt min.). @ -[None done] CT interpreted by me (1pt min.). @ -[None done] U/S interpreted by me (1pt. min.). @ -[None done] What testing was considered but not performed or refused? (CT, X-rays, U/S, labs)? Why? @ -[None] What meds were considered but not given or refused? Why? @ -[None] Did you discuss the management of the patient with other professionals (professionals i.e. , PA, GENERAL LITHOGRAPHIC WORKER, lab, RT, psych nurse, social human services assistants, tool design engineer, teacher, campus police officer, caser in)? Give summary @ -[No] Was smoking cessation discussed for >3mins.? @ -[No] Was critical care preformed (if so, how long)? @ -[No] Were there social determinants of health that impacted care today? How? (Home lessness, low income, unemployed, alcoholism, drug addiction, transportation, low edu. Level, literacy, decrease access to med. care, alf, rehab)? @ -[No] Was there de-escalation of care discussed even if they declined (Discuss DNR or withdrawal of care, Hospice)? @ -[No] What co-morbidities impacted this encounter? (DM, HTN, Smoking, COPD, CAD, Cancer, CVA, ARF, Chemo, Hep., AIDS, mental health diagnosis, sleep apnea, morbid obesity)? CAD Was patient admitted / discharged? Hospital course, mention meds given and route, prescriptions, significant lab abnormalities, going to OR and other pert inent info. @ -[hospital course] this is a pleasant 88-year-old gentleman presenting today for right-sided chest pressure radiating down his right arm, concerning for unstable angina. Pain 3 out of 10 on arrival. Patient will receive additional single nitroglycerin, morphine and cardiac labs. Dissipate admission. Troponin 4.110, previously on 08/07/2024 was 178, I suspect this is downtrending from recent cardiac cath however will continue to trend On reassessment patient's chest pain is down to 2 out of 10. Discussed with him elevated troponin. Will start on heparin infusion, repeat EKG to ensure no evolving ischemic changes. Anticipate admission. Undiagnosed new problem with uncertain prognosis? @ -[No] Drug Therapy requiring intensive monitoring for toxicity (Heparin, Nitro, Insuli n, Cardizem)? @ -[No] Were any procedures done? @ -[No] Diagnosis/symptom? @NSTEMI Acute, or Chronic, or Acute on Chronic? @Acute Uncomplicated (without systemic symptoms) or Complicated (systemic symptoms)? Complicated Side effects of treatment? @ -[No] Exacerbation, Progression, or Severe Exacerbation? @ -[No] Poses a threat to life or bodily function? How? (Chest pain, USA, SD, pneumonia, PE, COPD, DKA, ARF, appy, cholecystitis, CVA, Diverticulitis, Homicidal, Suicidal, threat to staff... and all critical care pts) @ -[No] - Lab Data Result diagrams: 08/14/24 03:25 08/14/24 03:25 Lab Results 08/14/24 08/14/24 08/14/24 Range/Units 03:25 03:25 03:25 WBC 8.05 (4.50-10.00) 10*3/uL RBC 3.67 L (4.40-5.60) 10*6/uL Hgb 11.5 L (13.0-17.0) g/dL Hct 34.9 L (39.6-50.0) % MCV 95.1 (80.0-97.0) fL MCH 31.3 (27.0-32.0) pg MCHC 33.0 (32.0-37.0) g/dL Plt Count 211 (140-440) 10*3/uL MPV 10.6 (9.5-12.2) fL Immature Gran % (Auto) 0.4 % Neutrophils % 64.8 % Lymphocytes % 19.4 % Monocytes % 10.6 % Eosinophils % 4.2 % Basophils % 0.6 % Immature Gran # 0.03 (0.00-0.04) 10*3/uL Neutrophils # 5.22 (1.80-7.70) 10*3/uL Lymphocytes # 1.56 (0.90-5.00) 10*3/uL Monocytes # 0.85 (0.20-1.00) 10*3/uL Eosinophils # 0.34 (0.04-0.35) 10*3/uL Basophils # 0.05 (0.00-0.10) 10*3/uL PT 11.7 (10.0-12.5) sec INR 1.1 (<1.2) APTT 23.5 (22.0-30.0) sec Sodium 134 L (137-145) mmol/L Potassium 4.7 (3.5-5.1) mmol/L Chloride 103 (98-107) mmol/L Carbon Dioxide 20 L (22-30) mmol/L Anion Gap 11 mmol/L BUN 45 H (9-20) mg/dL Creatinine 2.20 H (0.66-1.25) mg/dL Est GFR (CKD-EPI)AfAm 30 (>60 ml/min/1.73 sqM) Est GFR (CKD-EPI)NonAf 26 (>60 ml/min/1.73 sqM) Glucose 112 H (74-99) mg/dL Calcium 9.4 (8.4-10.2) mg/dL Magnesium 1.9 (1.6-2.3) mg/dL Total Bilirubin 0.9 (0.2-1.3) mg/dL AST 31 (17-59) U/L ALT 44 (4-49) U/L Alkaline Phosphatase 88 (38-126) U/L Troponin I (0.000-0.034) ng/mL NT-Pro-B Natriuret Pep 3550 pg/mL Total Protein 6.3 (6.3-8.2) g/dL Albumin 3.6 (3.5-5.0) g/dL Lipase 99 (23-300) U/L 08/14/24 Range/Units 03:25 WBC (4.50-10.00) 10*3/uL RBC (4.40-5.60) 10*6/uL Hgb (13.0-17.0) g/dL Hct (39.6-50.0) % MCV (80.0-97.0) fL MCH (27.0-32.0) pg MCHC (32.0-37.0) g/dL Plt Count (140-440) 10*3/uL MPV (9.5-12.2) fL Immature Gran % (Auto) % Neutrophils % % Lymphocytes % % Monocytes % % Eosinophils % % Basophils % % Immature Gran # (0.00-0.04) 10*3/uL Neutrophils # (1.80-7.70) 10*3/uL Lymphocytes # (0.90-5.00) 10*3/uL Monocytes # (0.20-1.00) 10*3/uL Eosinophils # (0.04-0.35) 10*3/uL Basophils # (0.00-0.10) 10*3/uL PT (10.0-12.5) sec INR (<1.2) APTT (22.0-30.0) sec Sodium (137-145) mmol/L Potassium (3.5-5.1) mmol/L Chloride (98-107) mmol/L Carbon Dioxide (22-30) mmol/L Anion Gap mmol/L BUN (9-20) mg/dL Creatinine (0.66-1.25) mg/dL Est GFR (CKD-EPI)AfAm (>60 ml/min/1.73 sqM) Est GFR (CKD-EPI)NonAf (>60 ml/min/1.73 sqM) Glucose (74-99) mg/dL Calcium (8.4-10.2) mg/dL Magnesium (1.6-2.3) mg/dL Total Bilirubin (0.2-1.3) mg/dL AST (17-59) U/L ALT (4-49) U/L Alkaline Phosphatase (38-126) U/L Troponin I 4.110 H* (0.000-0.034) ng/mL NT-Pro-B Natriuret Pep pg/mL Total Protein (6.3-8.2) g/dL Albumin (3.5-5.0) g/dL Lipase (23-300) U/L Disposition Clinical Impression: NSTEMI (non-ST elevated myocardial infarction) Disposition: ADMITTED IP TO THIS [facility] Condition: Stable Referrals: Gisella Grey DO [Primary Care Provider] - 1-2 days
[2024-08-14] MEDS: MORPHINE SULFATE 2 MG/ML SYRINGE IVP STA ×2 (03:33→05:42)
[2024-08-14] MEDS: NITROGLYCERIN SL TABS 0.4 MG TAB SUBLINGUAL STA (03:33)
[2024-08-14] MEDS: ONDANSETRON 4 MG/2 ML VIAL IVP STA ×2 (03:33→05:41)
[2024-08-14 03:54] LABS: Basophils # (A) 0.05 10*3/uL (0.00-0.10); Basophils % (A) 0.6 %; Eosinophils # (A) 0.34 10*3/uL (0.04-0.35); Eosinophils % (A) 4.2 %; HCT 34.9 % (39.6-50.0); HGB 11.5 g/dL (13.0-17.0); Lymphocytes # (A) 1.56 10*3/uL (0.90-5.00); Lymphocytes % (A) 19.4 %; MCH 31.3 pg (27.0-32.0); MCV 95.1 fL (80.0-97.0); Mean Platelet Volume 10.6 fL (9.5-12.2); Monocytes # (A) 0.85 10*3/uL (0.20-1.00); Monocytes % (A) 10.6 %; Neutrophils # (A) 5.22 10*3/uL (1.80-7.70); Neutrophils % (A) 64.8 %; Platelet Count 211 10*3/uL (140-440); RBC 3.67 10*6/uL (4.40-5.60); RDW 13.7 % (11.5-14.5); WBC 8.05 10*3/uL (4.50-10.00)
[2024-08-14 04:10] LABS: INR 1.1 (<1.2); Partial Thromboplastin Time 23.5 sec (22.0-30.0); Prothrombin Time 11.7 sec (10.0-12.5)
[2024-08-14 04:11] LABS: ALT 44 U/L (4-49); AST 31 U/L (17-59); African American GFR (CKD) 30 (>60 ml/min/1.73 sqM); Albumin 3.6 g/dL (3.5-5.0); Alkaline Phosphatase 88 U/L (38-126); Anion Gap 11 mmol/L; Blood Urea Nitrogen 45 mg/dL (9-20); Calcium 9.4 mg/dL (8.4-10.2); Carbon Dioxide 20 mmol/L (22-30); Chloride 103 mmol/L (98-107); Glucose 112 mg/dL (74-99); Lipase 99 U/L (23-300); Magnesium 1.9 mg/dL (1.6-2.3); Non-African American GFR(CKD) 26 (>60 ml/min/1.73 sqM); Potassium 4.7 mmol/L (3.5-5.1); Sodium 134 mmol/L (137-145); Total Bilirubin 0.9 mg/dL (0.2-1.3); Total Protein 6.3 g/dL (6.3-8.2)
[2024-08-14 04:20] LABS: NT-Pro-B-Type Natriuretic Pept 3550 pg/mL
--- NOTE | 2024-08-14 04:49 | XR ---
EXAM: XR Chest, 2 Views CLINICAL HISTORY: ITS.REASON XR Reason: Chest Pain TECHNIQUE: Frontal and lateral views of the chest. COMPARISON: Chest radiograph on 08/07/2024 FINDINGS: Hardware: None. Lungs/pleura: Mildly prominent lung markings. Left lower lung opacity. Heart/mediastinum: Atherosclerotic changes in the aorta. No cardiomegaly. Soft tissues: Unremarkable. Bones: No acute fracture. Upper abdomen: Normal. IMPRESSION: 1. Prominent lung markings may be secondary to technique versus pulmonary vasculature congestion. 2. Left lower lung opacity may represent atelectasis versus pneumonia and small left pleural effusion.
[2024-08-14] MEDS: SODIUM CHLORIDE 0.9% 500 ML 500 ML IV ONE (05:08)
[2024-08-14] MEDS ORDERED: HEPARIN SODIUM 1,000 UN/ML (10ML VL) IV PRN (05:18)
[2024-08-14] MEDS: HEPARIN SODIUM 1,000 UN/ML (10ML VL) IV ONE (05:40)
[2024-08-14] MEDS: HEPARIN SOD,PORK IN 0.45% NACL 25,000 UNIT in 0.45% NACL 1 250ML.BAG IV SCH (05:41)
[2024-08-14] MEDS ORDERED: NITROGLYCERIN SL TABS 0.4 MG TAB SUBLINGUAL PRN (06:10)
[2024-08-14] MEDS ORDERED: ACETAMINOPHEN TAB 325 MG TAB PO PRN (06:10)
[2024-08-14] MEDS ORDERED: MORPHINE SULFATE 2 MG/ML SYRINGE IVP PRN (06:10)
[2024-08-14] MEDS ORDERED: MECLIZINE 25 MG TAB PO PRN (06:12)
[2024-08-14] MEDS: AMIODARONE 200 MG TAB PO SCH (09:07)
[2024-08-14] MEDS: ASPIRIN 81 MG PO SCH (09:07)
[2024-08-14] MEDS: CLOPIDOGREL 75 MG TAB PO SCH (09:08)
[2024-08-14] MEDS: APIXABAN 2.5 MG TABLET PO SCH (09:08)
[2024-08-14] MEDS: GLIMEPIRIDE 2 MG TAB PO SCH (09:08)
[2024-08-14] MEDS: METOPROLOL TARTRATE 25 MG TAB PO SCH (09:09)
[2024-08-14] MEDS: LINAGLIPTIN 5 MG TABLET PO SCH (09:09)
[2024-08-14] MEDS: FUROSEMIDE 20 MG TAB PO SCH (09:09)
[2024-08-14] MEDS: TAMSULOSIN 0.4 MG CAP.ER.24H PO SCH (09:09)
[2024-08-14 10:31] LABS: Glucose,Whole Blood 148 mg/dL (70-110)
--- NOTE | 2024-08-14 10:54 | P.CRDCN ---
History of Present Illness History of present illness: HISTORY OF PRESENT ILLNESS: This is a 88-year-old male with a past medical history significant for atrial fibrillation, hypertension, hyperlipidemia, diabetes, and coronary artery disease. Patient has not followed up in the office but was recently seen in the hospital by Dr. Mead. We have been asked to see the patient in consultation for elevated troponins. Patient examined at the bedside in the emergency room. Patients spouse is present. Patient states he presented to the hospital with a chief complaint of fluttering in his chest. Patient states his symptoms are similar to what he experienced last week. Patient currently denies any chest pain or pressure. He denies any shortness of breath. Vital signs are stable. DIAGNOSTICS: - EKG reveals sinus mechanism with no signs of acute ischemia. - Chest xray prominent lung markings may be secondary to technique versus pu lmonary vascular congestion. Left lower lobe opacity may represent atelectasis versus pneumonia and small left pleural effusion. - Laboratory data: - Current home cardiac medications include amiodarone 400 mg twice a day, Eliquis 2.5 mg twice a day, aspirin 81 mg daily, Lipitor 40 mg at night, Plavix 75 mg daily, Lasix 20 mg daily, metoprolol tartrate 25 mg twice a day. - Most recent echocardiogram obtained on 08/08/2024 revealed ejection fraction 55 to 60%, mild pulm hypertension, mild MR, mild TR, sclerotic aortic valve, mild concentric LVH - Cardiac catheterization history: 08/08/2024 revealing 40 to 50% mid LAD, 100% circumflex, and distal RCA 60 to 70% stenosis. Status post PCI of the ci rcumflex REVIEW OF SYSTEMS: At the time of my exam: CONSTITUTIONAL: Denies fever or chills. HEENT: Denies blurred vision, vision changes, or eye pain. Denies hemoptysis CARDIOVASCULAR: Denies chest pain. Denies orthopnea. Denies PND. Denies palpitations RESPIRATORY: Denies shortness of breath. GASTROINTESTINAL: Denies abdominal pain. Denies nausea or vomiting. HEMATOLOGIC: Denies bleeding disorders. GENITOURINARY: Denies any blood in urine. SKIN: Denies pruitis. Denies rash. PHYSICAL EXAM: VITAL SIGNS: Reviewed. GENERAL: Well-developed in no acute distress. HEENT: Head is normocephalic. Pupils are equal, round. Sclerae anicteric. Mucous membranes of the mouth are moist. Neck supple. No JVD or thyromegaly LUNGS: Respirations even and unlabored. Lungs essentially clear to auscultation bilaterally. HEART: Regular rate and rhythm. S1 and S2 heard. ABDOMEN: Soft. Nondistended. Nontender. EXTREMITIES: Normal range of motion. No clubbing or cyanosis. Peripheral pulses intact. No lower extremity edema NEUROLOGIC: Awake and alert. Oriented x 3. ASSESSMENT: Chest pain, atypical, ACS ruled out Elevated troponins, trending downward from recent non-STEMI, no evidence of new cardiac event Coronary artery disease with recent PCI of the circumflex, 08/08/2024 Intermediate disease of the distal RCA, 60 to 70% Mild pulmonary hypertension Paroxysmal atrial fibrillation Hypertension Hyperlipidemia Diabetes PLAN: An acute coronary event has been ruled out Resume home cardiac medications Discontinue heparin. Resume Eliquis Patient may be discharged home today from a cardiac standpoint and follow-up in the office with Dr. Mead Nurse practitioner note has been reviewed by physician. Signing provider agrees with the documented findings, assessment, and plan of care documented by [employer] as a scribe. Past Medical History Past Medical History: Diabetes Mellitus, Hyperlipidemia, Hypertension History of Any Multi-Drug Resistant Organisms: None Reported Past Surgical History: No Surgical Hx Reported Additional Past Surgical History / Comment(s): left knee 8 years ago. Past Psychological History: No Psychological Hx Reported Smoking Status: Never smoker Past Alcohol Use History: None Reported Past Drug Use History: None Reported - Past Family History Father History Unknown: Yes Mother History Unknown: Yes Medications and Allergies Home Medications Medication Instructions Recorded Confirmed Type Glimepiride [Amaryl] 2 mg PO DAILY 01/28/24 08/14/24 History Meclizine [Antivert] 25 mg PO TID PRN 01/28/24 08/14/24 History sitaGLIPtin [Januvia] 100 mg PO DAILY 01/28/24 08/14/24 History Furosemide [Lasix] 20 mg PO DAILY 08/07/24 08/14/24 History Potassium Chloride 10 meq PO DAILY 08/07/24 08/14/24 History Tamsulosin HCl [Flomax] 0.4 mg PO BID 08/07/24 08/14/24 History Acetaminophen Tab [Tylenol] 650 mg PO Q4HR PRN tab 08/10/24 08/14/24 Rx Amiodarone [Cordarone] 400 mg PO BID #60 tab 08/10/24 08/14/24 Rx Apixaban [Eliquis] 2.5 mg PO BID #60 tab 08/10/24 08/14/24 Rx Aspirin 81 mg PO DAILY #30 tab 08/10/24 08/14/24 Rx Atorvastatin [Lipitor] 40 mg PO HS #30 tab 08/10/24 08/14/24 Rx Clopidogrel [Plavix] 75 mg PO DAILY #30 tab 08/10/24 08/14/24 Rx Metoprolol Tartrate [Lopressor] 25 mg PO BID #60 tab 08/10/24 08/14/24 Rx Nitroglycerin Sl Tabs [Nitrostat] 0.4 mg SUBLINGUAL Q5M PRN #20 tab 08/10/24 08/14/24 Rx Allergies Allergy/AdvReac Type Severity Reaction Status Date / Time dapagliflozin [From [facility]] Allergy Unknown Verified 08/14/24 07:51 metformin Allergy Rash/Hives Verified 08/14/24 07:51 peas Allergy Unknown Verified 08/14/24 07:51 Penicillins Allergy Rash/Hives Verified 08/14/24 07:51 Physical Exam Vitals: Vital Signs Temp Pulse Resp BP Pulse Ox 08/14/24 06:43 56 L 16 107/70 94 L 08/14/24 05:01 55 L 18 98/60 95 08/14/24 02:54 98.3 F 65 18 127/81 96 Intake and Output 08/13/24 08/14/24 08/14/24 22:59 06:59 14:59 Other: Weight 102.058 kg Results 08/14/24 03:25 08/14/24 03:25 Cardiac Enzymes 08/14/24 08/14/24 Range/Units 03:25 03:25 AST 31 (17-59) U/L Troponin I 4.110 H* (0.000-0.034) ng/mL Coagulation 08/14/24 Range/Units 03:25 PT 11.7 (10.0-12.5) sec APTT 23.5 (22.0-30.0) sec CBC 08/14/24 Range/Units 03:25 WBC 8.05 (4.50-10.00) 10*3/uL RBC 3.67 L (4.40-5.60) 10*6/uL Hgb 11.5 L (13.0-17.0) g/dL Hct 34.9 L (39.6-50.0) % Plt Count 211 (140-440) 10*3/uL Comprehensive Metabolic Panel 08/14/24 Range/Units 03:25 Sodium 134 L (137-145) mmol/L Potassium 4.7 (3.5-5.1) mmol/L Chloride 103 (98-107) mmol/L Carbon Dioxide 20 L (22-30) mmol/L BUN 45 H (9-20) mg/dL Creatinine 2.20 H (0.66-1.25) mg/dL Glucose 112 H (74-99) mg/dL Calcium 9.4 (8.4-10.2) mg/dL AST 31 (17-59) U/L ALT 44 (4-49) U/L Alkaline Phosphatase 88 (38-126) U/L Total Protein 6.3 (6.3-8.2) g/dL Albumin 3.6 (3.5-5.0) g/dL Current Medications Generic Name Dose Route Start Last Admin Trade Name Freq PRN Reason Stop Dose Admin Acetaminophen 650 mg 08/14/24 06:10 Acetaminophen Tab 325 Mg Tab PO Q6HR PRN Pain Amiodarone HCl 400 mg 08/14/24 09:00 Amiodarone 200 Mg Tab PO BID [facility] Atorvastatin Calcium 40 mg 08/14/24 21:00 Atorvastatin 40 Mg Tab PO HS [facility] Clopidogrel Bisulfate 75 mg 08/14/24 09:00 Clopidogrel 75 Mg Tab PO DAILY [facility] Furosemide 20 mg 08/14/24 09:00 Furosemide 20 Mg Tab PO DAILY [facility] Glimepiride 2 mg 08/14/24 09:00 Glimepiride 2 Mg Tab PO DAILY [facility] Heparin Sodium (Porcine) 0 unit 08/14/24 05:18 Heparin Sodium 1,000 Un/Ml (10ml Vl) IV PER PROTOCOL PRN Low PTT Protocol Heparin Sodium/Sodium Chloride 250 mls @ 10.002 mls/hr 08/14/24 05:30 08/14/24 05:41 25,000 unit/ Sodium Chloride IV 9.8 units/kg/hr .Q24H [facility] 10.002 mls/hr Administration Protocol 9.8 UNITS/KG/HR Linagliptin 5 mg 08/14/24 09:00 Linagliptin 5 Mg Tablet PO DAILY [facility] Meclizine HCl 25 mg 08/14/24 06:12 Meclizine 25 Mg Tab PO TID PRN [facility] Metoprolol Tartrate 25 mg 08/14/24 09:00 Metoprolol Tartrate 25 Mg Tab PO BID [facility] Nitroglycerin 0.4 mg 08/14/24 06:10 Nitroglycerin Sl Tabs 0.4 Mg Tab SUBLINGUAL Q5M PRN Chest Pain Tamsulosin HCl 0.4 mg 08/14/24 09:00 Tamsulosin 0.4 Mg Cap.Er.24h PO BID [facility] Intake and Output 08/13/24 08/14/24 08/14/24 22:59 06:59 14:59 Other: Weight 102.058 kg 08/14/24 03:25 08/14/24 03:25
[2024-08-14 13:50] VITALS: BP 114/75; PULSE 68; RESP 16; TEMP 97.7
--- NOTE | 2024-08-14 17:41 | HP ---
HISTORY AND PHYSICAL This is a combined history and physical and discharge summary. CHIEF COMPLAINT: Chest pain. HISTORY OF PRESENT ILLNESS: This 88-year-old gentleman with a past medical history of multiple medical problems, was recently admitted with cardiac catheterization and circumflex stenting and the patient also had new onset atrial fibrillation. The patient currently complaining of chest pain, which felt in the anterior part of the chest and radiating to the right arm. The patient took 2 nitros, because of lack of improvement. The patient came to [facility]. The troponin is found to be 4 and 3, which is improved greatly from the previous troponin levels and Cardiology saw the patient recommended discharge and outpatient followup. There is no history of fever, rigors, or chills at this time. PAST MEDICAL HISTORY: Reviewed, include CAD stent. Rest of his chart is also reviewed. HOME MEDICATIONS: Reviewed. Include nitroglycerin. Dose and rest of medications reviewed. ALLERGIES: Farxiga. Rest of the allergies are noted. FAMILY HISTORY: No history of heart disease or strokes in the family. SOCIAL HISTORY: No smoking. No alcohol. REVIEW OF SYSTEMS: Fourteen-point review of systems is negative except as mentioned earlier. PHYSICAL EXAMINATION: VITAL SIGNS: Pulse 61, blood pressure 114/70, and respirations 22. HEENT: Conjunctivae normal. NECK: No jugular venous distention. CARDIOVASCULAR: S1, S2. RESPIRATION: Breath sounds diminished at the bases. ABDOMEN: Soft. LEGS: No edema. No cyanosis. NERVOUS SYSTEM: Nonfocal SKIN: No rashes. LABORATORY DATA: Labs are reviewed. ASSESSMENT: 1. Chest pain, possible unstable angina. 2. History of recent myocardial infarction and cardiac catheterization and stenting of the circumflex. 3. History of atrial fibrillation. 4. Chronic kidney disease. 5. Diabetes mellitus, type 2. 6. Hypertension. 7. Hyperlipidemia. 8. Multiple complex medical issues. RECOMMENDATION: This 88-year-old gentleman presented with multiple complex medical issues, we will monitor the patient closely. As mentioned earlier, Cardiology has seen the patient and cleared the patient for discharge. Currently asymptomatic. Troponins was markedly diminished compared to the previous ones. Resume Eliquis and continue the home medications. Please refer to the medication reconciliation sheet for list of medications and follow up with Dr. Mead and primary physician as recommended. MMODL / IJN: [id number] /
[2024-08-14] MEDS ORDERED: ATORVASTATIN 40 MG TAB PO SCH (21:00)
[2024-08-15] MEDS ORDERED: ASPIRIN 325 MG TAB PO SCH (09:00)
== END 2024-08-14 13:49 | disposition home or self-care (01) | DRG 282 ==
LOC: EC 02:53 → 3SCARD 06:10
PROVIDERS: ADMIT Hospitalist; ATTEND Hospitalist
DX: I25.110 Atherosclerotic heart disease of native coronary artery with unstable angina pectoris (principal); I21.4 Non-ST elevation (NSTEMI) myocardial infarction; I27.20 Pulmonary hypertension, unspecified; E11.22 Type 2 diabetes mellitus with diabetic chronic kidney disease; I12.9 Hypertensive chronic kidney disease with stage 1 through stage 4 chronic kidney disease, or unspecified chronic kidney disease; N18.9 Chronic kidney disease, unspecified; E78.5 Hyperlipidemia, unspecified; I48.0 Paroxysmal atrial fibrillation; Z79.01 Long term (current) use of anticoagulants; Z79.02 Long term (current) use of antithrombotics/antiplatelets; Z79.82 Long term (current) use of aspirin; Z79.84 Long term (current) use of oral hypoglycemic drugs; Z79.899 Other long term (current) drug therapy; Z95.5 Presence of coronary angioplasty implant and graft; Z88.0 Allergy status to penicillin; Z88.8 Allergy status to other drugs, medicaments and biological substances
CPT/HCPCS: 36415; 71046; 80053; 83690; 83735; 83880; 84484; 85025; 85610; 85730; 93005; 96365; 96366; 96375; 96376; 99285

== ENCOUNTER → 2024-09-15 | Outpatient (CLI) | payer MEDICARE ==
--- NOTE | 2024-09-15 12:19 | US ---
EXAMINATION TYPE: US renal artery duplex complet DATE OF EXAM: 09/15/2024 COMPARISON: NONE CLINICAL INDICATION: Male, 89 years old with history of N18.9 CKD; CKD TECHNIQUE: Grayscale, color Doppler and spectral Doppler imaging of the bilateral renal arteries and kidneys. FINDINGS: MEASUREMENTS: RENAL SIZE: Right Kidney: 9.3 x 5.7 x 6.0cm Left Kidney: 10.7 x 4.7 x 5.4cm Right Kidney: hypoechoic area seen inf pole measuring 1.1 x 1.0 x 1.4cm. Consistent with a simple cy st. Cortical thinning. Corticomedullary differentiation is maintained. Left Kidney: cystic area lateral border measuring 1.6cm. Consistent with a simple cyst. Cortical thin rick. Corticomedullary differentiation is maintained. Abd Aorta: dilatation seen mid pole measuring 5.1 x 4.1cm Grayscale imaging of the kidneys and show no evidence for hydronephrosis or solid renal mass. No giovani l calculi. Bilateral simple appearing cysts. Cortical thinning of both kidneys with corticomedullary differentiation maintained. RESISTANCE INDEX Right: 0.64 Left: 0.66 RA/AO RATIO (< 3.5 ) Right: 1.7 Left: 1.8 RENAL ARTERY VELOCITY ( < 180 cm/s) Right: 133.7 Left: 142.3 Pharmacy Billing Adjudicator Notes: No significantly elevated velocities seen Appropriate color Doppler flow and spectral waveforms to the kidneys bilaterally. IMPRESSION: 1. No evidence for renal artery stenosis bilaterally. 2. Mid abdominal aortic aneurysm measuring 5.1 x 4.1 cm. Vascular surgical consultation with CTA abdo men is recommended. 3. Findings of bilateral chronic medical renal disease. [facility], , 09/15/2024 12:17 PM
== END | disposition home or self-care (01) ==
LOC: RADUSWWP 10:25
PROVIDERS: ATTEND Family Medicine
DX: N28.1 Cyst of kidney, acquired (principal); I71.40 Abdominal aortic aneurysm, without rupture, unspecified; N18.9 Chronic kidney disease, unspecified
CPT/HCPCS: 93975

== ENCOUNTER → 2024-09-26 | Outpatient (CLI) | payer MEDICARE ==
[2024-09-26 10:52] LABS: African American GFR (CKD) 34 (>60 ml/min/1.73 sqM); Blood Urea Nitrogen 33 mg/dL (9-20); Non-African American GFR(CKD) 30 (>60 ml/min/1.73 sqM)
--- NOTE | 2024-09-29 09:40 | CT ---
EXAMINATION TYPE: CT abdomen wo con DATE OF EXAM: 09/26/2024 11:21 AM COMPARISON: None. CLINICAL INDICATION: Male, 89 years old with history of I71.40 ABDOMINAL AORTIC ANEURYSM, WITHOUT RUP TURE, abdominal aortic aneurysm TECHNIQUE: Axial images were obtained from above the diaphragm to the pubic rami in the axial plane a t 5 mm thick sections. Reconstructed images are reviewed on the computer in the coronal plane. CONTRAST: mL of . Study performed without Oral Contrast DLP: 610 mGycm, Automated exposure control for dose reduction was used. FINDINGS: Limited CT sections are obtained the lung bases. The lung bases are clear. Mild coronary artery krystle cification is present CT ABDOMEN: Liver: Normal Spleen: Normal Pancreas: Normal Adrenal glands: The adrenal glands are normal. Gallbladder: Normal Kidneys: No masses are evident. No hydronephrosis is present. No cysts are present. Delayed images were obtained through the kidneys, which remain unremarkable. Aorta: Vascular calcification is within the aorta. There is an abdominal aortic aneurysm 4.6 cm AP d imension. This terminates at the bifurcation and begins infrarenal region. There is some tortuosity o f the aorta. Inferior vena cava: Normal. Loops of bowel within the abdomen and upper pelvis are normal. This study is without oral contras t limiting evaluation. IMPRESSION: 1. Abdominal aortic aneurysm 4.6 cm [facility], , 09/29/2024 9:38 AM
== END | disposition home or self-care (01) ==
LOC: RADCTMAIN 10:14
PROVIDERS: ATTEND Family Medicine
DX: I71.40 Abdominal aortic aneurysm, without rupture, unspecified (principal)
CPT/HCPCS: 74150; 82565; 84520